=== PATIENT | female | born 1985 | race Caucasian/White ===

== ENCOUNTER 2017-05-24 10:31 | Emergency (ER) | payer MEDICAID ==
[~2017-05-24] VITALS: Ht 165.1 cm; Wt 95.0 kg
[~2017-05-24 10:31] MED LIST: PRED50 PO; ROBISYP6 PO; ZITHTAB PO
[2017-05-24 10:33] VITALS: BP 130/76; PULSE 97; RESP 15; TEMP 98.6; O2SAT 98
[2017-05-24 10:52] VITALS: BP 121/82; PULSE 90; RESP 18; O2SAT 99
[2017-05-24 10:56] VITALS: RESP 20; O2SAT 98
[2017-05-24] MEDS ORDERED: SE-NTAB3 PO (10:56)
[2017-05-24] MEDS ORDERED: NITR50CA27 PO (10:56)
[2017-05-24] MEDS ORDERED: SODIUM CHLORIDE 0.9% FLUSH 10 ML FLUSH IVF PRN (11:00)
[2017-05-24] MEDS ORDERED: SODIUM CHLOR 0.9% 1000 ML INJ 1,000 ML IV ONE (11:15)
[2017-05-24] MEDS ORDERED: ACETAMINOPHEN 325 MG TAB PO ONE (11:15)
[2017-05-24 11:30] LABS: BASOPHIL % 0.1 % (0.0-2.0); EOSINOPHIL # 0.3 TH/MM3 (0-0.4); EOSINOPHIL % 3.2 % (0.0-4.0); HEMATOCRIT 34.1 % (35.0-46.0); HEMO FLAGS DIFF FINAL; LYMPH % 24.5 % (9.0-44.0); LYMPHOCYTE # 2.2 TH/MM3 (1.0-4.8); MEAN CELL VOLUME 88.1 FL (80.0-100.0); MEAN CORPUSCULAR HEMOGLOBIN 29.3 PG (27.0-34.0); MEAN CORPUSCULAR HGB CONC 33.3 % (32.0-36.0); MONO % 6.9 % (0.0-8.0); NEUT % 65.3 % (16.0-70.0); PLATELET COUNT 202 TH/MM3 (150-450); RED BLOOD COUNT 3.87 MIL/MM3 (4.00-5.30); WHITE BLOOD COUNT 9.2 TH/MM3 (4.0-11.0)
--- NOTE | 2017-05-24 11:32 | PD ---
HPI Chief Complaint: Chest Pain Time Seen by Provider: 10:49 Travel History International Travel<30 days: No Contact w/Intl Traveler<30days: No Traveled to known affect area: No History of Present Illness HPI Patient is a 32 year old female with history of costochondritis and , presents to ER with complaints of chest pain. Patient reports that last night around 8pm, she began having a sharp and stabbing sensation to her left chest. Reports that her chest feels "achy" and "tight." Reports history of costochondritis in the past. Patient reports that she does feel shortness of breath with her symptoms. Patient denies any fevers or chills, denies any cough or congestion. Patient with no history of hypertension or hyperlipidemia or history of drug abuse. Patient with no recent travels or trips. Patient with no history of PE or DVT. Patient with no family history of early coronary artery disease. Patient reports that nothing makes her pain better or worse. In addition, patient is 16 weeks with twins, reports that this is her first . Reports that she has been having increased cramping to her right lower abdomen. Denies any vaginal bleeding, reports slight discharge which she has had. She does follow with Dr. Nayak, spa consultant who has seen her in the office already. PFSH Past Medical History Asthma: Yes Autoimmune Disease: Yes (FIBROMYALGIA) Bipolar Disorder: Yes Anxiety: Yes Depression: Yes Diminished Hearing: No Fibromyalgia: Yes Gastrointestinal Disorders: Yes (COLITIS) Musculoskeletal: Yes (COSTOCHONDRITIS) Respiratory: Yes (BRONCHITIS) Immunizations Current: Yes ?: LMP: 03/02/17 : 1 Para: 0 : 1 Past Surgical History Surgical History: No Previous Surgery Oral Surgery: Yes (WISDOM TEETH) Tonsillectomy: Yes Other Surgery: Yes (NASAL POLYP) Social History Alcohol Use: No Tobacco Use: No (NEVER) Substance Use: Yes (THC) Allergies-Medications (Allergen,Severity, Reaction): Coded Allergies: sertraline (Unverified Allergy, Severe, Swelling, 05/24/17) TONGUE SWELLING *ANGIOEDEMA* Reported Meds & Prescriptions Reported Meds & Active Scripts Active Reported Macrodantin (Nitrofurantoin Macrocrystal) 50 Mg Cap 50 Mg PO BID Se-Lorraine 19 29-1 mg ( Vit W/ Docusate-Fe Fu) 29 Mg Iron-1 Mg-25 Mg Tab 1 Tab PO DAILY Review of Systems General / Constitutional: No: Fever Eyes: No: Visual changes HENT: No: Headaches Cardiovascular: Positive: Chest Pain or Discomfort Respiratory: Positive: Shortness of Breath Gastrointestinal: Positive: Abdominal Pain Genitourinary: No: Dysuria Musculoskeletal: No: Pain Skin: No Rash Neurologic: No: Weakness Psychiatric: No: Depression Endocrine: No: Polydipsia Hematologic/Lymphatic: No: Easy Bruising Physical Exam Narrative GENERAL: nad, nontoxic appearing SKIN: Focused skin assessment warm/dry. HEAD: Atraumatic. Normocephalic. EYES: Pupils equal and round. No scleral icterus. No injection or drainage. ENT: No nasal bleeding or discharge. Mucous membranes pink and moist. NECK: Trachea midline. No JVD. CARDIOVASCULAR: Regular rate and rhythm. No murmur appreciated. RESPIRATORY: No accessory muscle use. Clear to auscultation. Breath sounds equal bilaterally. GASTROINTESTINAL: Abdomen soft, non-tender, nondistended. Hepatic and splenic margins not palpable. Gravid abdomen MUSCULOSKELETAL: No obvious deformities. No clubbing. No cyanosis. No edema. NEUROLOGICAL: Awake and alert. No obvious cranial nerve deficits. Motor grossly within normal limits. Normal speech. PSYCHIATRIC: Appropriate mood and affect; insight and judgment normal. Data Data Last Documented VS Vital Signs Date Time Temp Pulse Resp B/P (MAP) Pulse Ox O2 Delivery O2 Flow Rate FiO2 05/24/17 13:22 87 18 113/79 (90) 100 Room Air 05/24/17 10:33 98.6 Orders Orders Electrocardiogram (05/24/17 10:49) Complete Blood Count With Diff (05/24/17 10:49) Comprehensive Metabolic Panel (05/24/17 10:49) Magnesium (Mg) (05/24/17 10:49) Prothrombin Time / Inr (Pt) (05/24/17 10:49) Act Partial Throm Time (Ptt) (05/24/17 10:49) Lipase (05/24/17 10:49) Ecg Monitoring (05/24/17 10:49) Iv Access Insert/Monitor (05/24/17 10:49) Oximetry (05/24/17 10:49) Sodium Chloride 0.9% Flush (Ns Flush) (05/24/17 11:00) Heart Tones (05/24/17 10:49) Ckmb (Isoenzyme) Profile (05/24/17 11:01) Troponin I (05/24/17 11:01) Sodium Chlor 0.9% 1000 Ml Inj (Ns 1000 M (05/24/17 11:15) Acetaminophen (Tylenol) (05/24/17 11:15) Urinalysis - C+S If Indicated (05/24/17 11:28) Electrocardiogram (05/24/17 ) Labs Laboratory Tests Test 05/24/17 11:01 05/24/17 12:00 White Blood Count 9.2 TH/MM3 Red Blood Count 3.87 MIL/MM3 Hemoglobin 11.3 GM/DL Hematocrit 34.1 % Mean Corpuscular Volume 88.1 FL Mean Corpuscular Hemoglobin 29.3 PG Mean Corpuscular Hemoglobin Concent 33.3 % Red Cell Distribution Width 15.0 % Platelet Count 202 TH/MM3 Mean Platelet Volume 8.2 FL Neutrophils (%) (Auto) 65.3 % Lymphocytes (%) (Auto) 24.5 % Monocytes (%) (Auto) 6.9 % Eosinophils (%) (Auto) 3.2 % Basophils (%) (Auto) 0.1 % Neutrophils # (Auto) 6.0 TH/MM3 Lymphocytes # (Auto) 2.2 TH/MM3 Monocytes # (Auto) 0.6 TH/MM3 Eosinophils # (Auto) 0.3 TH/MM3 Basophils # (Auto) 0.0 TH/MM3 CBC Comment DIFF FINAL Differential Comment Prothrombin Time 10.0 SEC Prothromb Time International Ratio 0.9 RATIO Activated Partial Thromboplast Time 25.8 SEC Blood Urea Nitrogen 2 MG/DL Creatinine 0.42 MG/DL Random Glucose 86 MG/DL Total Protein 7.0 GM/DL Albumin 2.9 GM/DL Calcium Level 9.1 MG/DL Magnesium Level 1.8 MG/DL Alkaline Phosphatase 82 U/L Aspartate Amino Transf (AST/SGOT) 22 U/L Alanine Aminotransferase (ALT/SGPT) 25 U/L Total Bilirubin 0.2 MG/DL Sodium Level 136 MEQ/L Potassium Level 3.6 MEQ/L Chloride Level 104 MEQ/L Carbon Dioxide Level 23.6 MEQ/L Anion Gap 8 MEQ/L Estimat Glomerular Filtration Rate 176 ML/MIN Total Creatine Kinase 32 U/L Troponin I LESS THAN 0.02 NG/ML Lipase 111 U/L Urine Color YELLOW Urine Turbidity HAZY Urine pH 6.5 Urine Specific [place] 1.014 Urine Protein NEG mg/dL Urine Glucose (UA) NEG mg/dL Urine Ketones NEG mg/dL Urine Occult Blood NEG Urine Nitrite NEG Urine Bilirubin NEG Urine Urobilinogen LESS THAN 2.0 MG/DL Urine Leukocyte Esterase NEG Urine RBC 4 /hpf Urine WBC 3 /hpf Urine Squamous Epithelial Cells 3 /hpf Urine Bacteria OCC /hpf Urine Mucus FEW /lpf Microscopic Urinalysis Comment CULT NOT INDICATED MDM Medical Decision Making Medical Screen Exam Complete: Yes Emergency Medical Condition: Yes Medical Record Reviewed: Yes Interpretation(s) EKG at 1053 NSR at 84bpm, qt/qtc: 373/414/ no acute st or t wave changes Vital Signs Date Time Temp Pulse Resp B/P (MAP) Pulse Ox O2 Delivery O2 Flow Rate FiO2 05/24/17 10:56 20 98 Room Air 05/24/17 10:52 90 18 121/82 (95) 99 Room Air 05/24/17 10:33 98.6 97 15 130/76 (94) 98 Repeat ekg at 1300: NSR at 85bpm, qt/qtc: 379/421, qt/qtc: 379/421, no acute st or t wave changes Laboratory Tests Test 05/24/17 11:01 05/24/17 12:00 White Blood Count 9.2 TH/MM3 (4.0-11.0) Red Blood Count 3.87 MIL/MM3 (4.00-5.30) Hemoglobin 11.3 GM/DL (11.6-15.3) Hematocrit 34.1 % (35.0-46.0) Mean Corpuscular Volume 88.1 FL (80.0-100.0) Mean Corpuscular Hemoglobin 29.3 PG (27.0-34.0) Mean Corpuscular Hemoglobin Concent 33.3 % (32.0-36.0) Red Cell Distribution Width 15.0 % (11.6-17.2) Platelet Count 202 TH/MM3 (150-450) Mean Platelet Volume 8.2 FL (7.0-11.0) Neutrophils (%) (Auto) 65.3 % (16.0-70.0) Lymphocytes (%) (Auto) 24.5 % (9.0-44.0) Monocytes (%) (Auto) 6.9 % (0.0-8.0) Eosinophils (%) (Auto) 3.2 % (0.0-4.0) Basophils (%) (Auto) 0.1 % (0.0-2.0) Neutrophils # (Auto) 6.0 TH/MM3 (1.8-7.7) Lymphocytes # (Auto) 2.2 TH/MM3 (1.0-4.8) Monocytes # (Auto) 0.6 TH/MM3 (0-0.9) Eosinophils # (Auto) 0.3 TH/MM3 (0-0.4) Basophils # (Auto) 0.0 TH/MM3 (0-0.2) CBC Comment DIFF FINAL Differential Comment Prothrombin Time 10.0 SEC (9.8-11.6) Prothromb Time International Ratio 0.9 RATIO Activated Partial Thromboplast Time 25.8 SEC (24.3-30.1) Blood Urea Nitrogen 2 MG/DL (7-18) Creatinine 0.42 MG/DL (0.50-1.00) Random Glucose 86 MG/DL (74-106) Total Protein 7.0 GM/DL (6.4-8.2) Albumin 2.9 GM/DL (3.4-5.0) Calcium Level 9.1 MG/DL (8.5-10.1) Magnesium Level 1.8 MG/DL (1.5-2.5) Alkaline Phosphatase 82 U/L (45-117) Aspartate Amino Transf (AST/SGOT) 22 U/L (15-37) Alanine Aminotransferase (ALT/SGPT) 25 U/L (10-53) Total Bilirubin 0.2 MG/DL (0.2-1.0) Sodium Level 136 MEQ/L (136-145) Potassium Level 3.6 MEQ/L (3.5-5.1) Chloride Level 104 MEQ/L (98-107) Carbon Dioxide Level 23.6 MEQ/L (21.0-32.0) Anion Gap 8 MEQ/L (5-15) Estimat Glomerular Filtration Rate 176 ML/MIN (>89) Lipase 111 U/L (73-393) Urine Color YELLOW (YELLW/STRAW) Urine Turbidity HAZY (CLEAR) Urine pH 6.5 (5.0-8.5) Urine Specific [place] 1.014 (1.002-1.035) Urine Protein NEG mg/dL (NEG-TRACE) Urine Glucose (UA) NEG mg/dL (NEG) Urine Ketones NEG mg/dL (NEG) Urine Occult Blood NEG (NEG) Urine Nitrite NEG (NEG) Urine Bilirubin NEG (NEG) Urine Urobilinogen LESS THAN 2.0 MG/DL (LESS Urine Leukocyte Esterase NEG (NEG) Urine RBC 4 /hpf (0-3) Urine WBC 3 /hpf (0-5) Urine Squamous Epithelial Cells 3 /hpf (0-5) Urine Bacteria OCC /hpf (NONE) Urine Mucus FEW /lpf (OCC) Microscopic Urinalysis Comment CULT NOT INDICATED Differential Diagnosis Differential includes acs, arrhythmia, costochondritis, endocarditis/ pericarditis though unlikely, round ligament pain, UTI, PE Narrative Course 32-year-old female who presents to emergency room complaints of chest pain and abdominal pain. Patient with left sided chest pain, patient describes chest pain as sharp and stabbing in nature. Patient was placed on a cardiac surgeon upon arrival to the emergency room, EKG was obtained which showed no acute ST-T wave changes. Patient with atypical symptoms for chest pain, lab work including cardiac enzymes ordered to rule out infectious etiology of chest pain including but not limited to an endocarditis or pericarditis. Patient with low risk for this as she denies any IV drug abuse, denies any fevers or chills. Reports history of costochondritis with similar symptoms in the past. There is also consideration for possible pulmonary emboli, given her shortness of breath or chest pain, patient with no history of PE or DVT, patient with no recent travels, no family history of any irregular clotting disorders, patient is not tachycardic in the emergency room, patient with low probably for PE. As per patient's abdominal pain, patient reports cramping to right lower abdomen , she is 16 weeks . Reports intermittent pain to RLE, no vaginal discharge or bleeding. Plan to check UA. Will send patient to L&D for monitoring after she is cleared from the ER. Vital Signs Date Time Temp Pulse Resp B/P (MAP) Pulse Ox O2 Delivery O2 Flow Rate FiO2 05/24/17 10:56 20 98 Room Air 05/24/17 10:52 90 18 121/82 (95) 99 Room Air 05/24/17 10:33 98.6 97 15 130/76 (94) 98 CBC & BMP Diagram 10/19/17 11:01 Total Protein 7.0, Albumin 2.9 L, Calcium Level 9.1, Magnesium Level 1.8, Alkaline Phosphatase 82, Aspartate Amino Transf (AST/SGOT) 22, Alanine Aminotransferase (ALT/SGPT) 25, Total Bilirubin 0.2 Trop Patient re-evaluated, patient feeling much better at this time with complete resolution of her symptoms. Patient with most likely costochondritis, discussed with patient possibility of PE but patient is low risk for PE. Patient is not tachycardic or hypoxic this time, patient with complete resolution of chest pain at this time. Discussed with patient that to diagnose pulmonary emboli, CTA will be need to be obtained. With shared decision making , patient does not want CT at this time, if symptoms worsen or progress, she will return for further imaging studies. Patient will go upstairs to L&D for monitoring at this time. Diagnosis Primary Impression: Chest pain Qualified Codes: R07.9 - Chest pain, unspecified Additional Impression: Abdominal pain Qualified Codes: R10.9 - Unspecified abdominal pain Patient Instructions: General Instructions Additional Instructions: Please provide patient with a copy of her lab work and studies at discharge Please go directly to Labor and delivery once you are discharged from the ER Please follow up with your primary care doctor in 2-3 days Return to ER if symptoms worsen or progress Return to ER as needed Disposition: 01 DISCHARGE HOME Condition: Stable Vanita Chambers DO May 24, 2017 11:32
[2017-05-24 11:37] LABS: APTT (PATIENT) 25.8 SEC (24.3-30.1); INTERNATIONAL NORMALIZED RATIO 0.9 RATIO
[2017-05-24 11:46] LABS: ANION GAP 8 MEQ/L (5-15); AST (GOT) 22 U/L (15-37); BICARBONATE 23.6 MEQ/L (21.0-32.0); BLOOD UREA NITROGEN 2 MG/DL (7-18); CHLORIDE 104 MEQ/L (98-107); GLOMERULAR FILTRATION RATE 176 ML/MIN (>89); MAGNESIUM 1.8 MG/DL (1.5-2.5); POTASSIUM 3.6 MEQ/L (3.5-5.1); SODIUM (NA) 136 MEQ/L (136-145)
[2017-05-24 11:48] LABS: ALT (GPT) 25 U/L (10-53)
[2017-05-24 11:50] LABS: ALKALINE PHOSPHATASE 82 U/L (45-117); TOTAL BILIRUBIN ADULT 0.2 MG/DL (0.2-1.0)
[2017-05-24 12:36] LABS: BACTERIA, URINE OCC /hpf; BLOOD, URINE NEG (NEG); COMMENT (UR) CULT NOT INDICATED; CULTURE IF INDICATED CULT NOT INDICATED; GLUCOSE,URINE NEG (NEG); KETONE, URINE NEG (NEG); MUCUS URINE FEW /lpf (OCC); NITRITE,URINE NEG (NEG); PH, URINE 6.5 (5.0-8.5); SQUAMOUS EPITHELIAL CELL URINE 3 /hpf (0-5); URINE COLOR YELLOW (YELLW/STRAW)
[2017-05-24 13:22] VITALS: BP 113/79; PULSE 87; RESP 18; O2SAT 100
[2017-05-24 13:41] LABS: CREATINE KINASE 32 U/L (26-192)
--- NOTE | 2017-05-24 15:29 | PD ---
HPI Travel History International Travel<30 Days: No Contact w/Intl Traveler<30Days: No Known Affected Area: No (Christy Sheth MD R1) History of Present Illness HPI 32yr old [id number] at 16/1 weeks with twin gestation, presents with cramping pain. Initially presented to ER for chest pain and SOB that resolved. ACS r/o was negative. Patient reports that cramping pain began last night. She describes it as constant, right sided, dull- like pain. She is recently taking a 7-day course of antibiotics for a UTI. She reports that UTI is improving. She states that she has normal, thin white discharge. She denies fevers, leakage of fluid, and contractions. She currently denies depression and suicidal ideation. However , she requested information to speak to a therapist/counselor. (Christy Sheth MD R1) History Past Medical History Narrative Medical Fibromyalgia Costochondritis (Christy Sheth MD) Obstetric History Obstetric History A1 w/ twins LMP: January 31, 2017 (Christy Sheth MD) Past Surgical History Narrative Surgical Tonsillectomy (Christy Sheth MD) Family History Family History: Negative (Christy Sheth MD) Social History Alcohol Use: No Tobacco Use: No Substance Abuse: Yes (Marijuana use in early ) (Christy Sheth MD) Allergies-Medications (Allergen,Severity, Reaction): Coded Allergies: sertraline (Unverified Allergy, Severe, Swelling, 05/24/17) TONGUE SWELLING *ANGIOEDEMA* Home Meds Reported Medications Nitrofurantoin Macrocrystal (Macrodantin) 50 Mg Cap, 50 MG PO BID for Infection , CAP 0 Refills 05/24/17 Vit W/ Docusate-Fe Fu (Se-Lorraine 29-1 mg) 29 Mg Iron-1 Mg-25 Mg Tab, 1 TAB PO DAILY for Nutritional Supplement, TAB 0 Refills 05/24/17 Review of Systems Except as stated in HPI: all other systems reviewed are Neg (Christy Sheth MD R1) Physical Exam Vital Signs Date Time Temp Pulse Resp B/P (MAP) Pulse Ox O2 Delivery O2 Flow Rate FiO2 05/24/17 13:22 87 18 113/79 (90) 100 Room Air 05/24/17 10:56 20 98 Room Air 05/24/17 10:52 90 18 121/82 (95) 99 Room Air 05/24/17 10:33 98.6 97 15 130/76 (94) 98 Narrative GENERAL: Well-nourished, well-developed patient. SKIN: Warm and dry. HEAD: Normocephalic and atraumatic. EYES: No scleral icterus. No injection or drainage. ENT: No nasal drainage noted. Mucous membranes pink. Airway patent. NECK: Supple, trachea midline. No JVD. CARDIOVASCULAR: Regular rate and rhythm without murmurs, gallops, or rubs. RESPIRATORY: Breath sounds equal bilaterally. No accessory muscle use. ABDOMEN/GI: Abdomen soft, non-tender, bowel sounds present, no rebound, no guarding EXTREMITIES: No cyanosis or edema. BACK: Nontender without obvious deformity. NEUROLOGICAL: Awake and alert. Motor and sensory grossly within normal limits. (Christy Sheth MD R1) Data Data Vital Signs Reviewed: Yes Orders Orders Electrocardiogram (05/24/17 10:49) Complete Blood Count With Diff (05/24/17 10:49) Comprehensive Metabolic Panel (05/24/17 10:49) Magnesium (Mg) (05/24/17 10:49) Prothrombin Time / Inr (Pt) (05/24/17 10:49) Act Partial Throm Time (Ptt) (05/24/17 10:49) Lipase (05/24/17 10:49) Ecg Monitoring (05/24/17 10:49) Iv Access Insert/Monitor (05/24/17 10:49) Oximetry (05/24/17 10:49) Sodium Chloride 0.9% Flush (Ns Flush) (05/24/17 11:00) Heart Tones (05/24/17 10:49) Ckmb (Isoenzyme) Profile (05/24/17 11:01) Troponin I (05/24/17 11:01) Sodium Chlor 0.9% 1000 Ml Inj (Ns 1000 M (05/24/17 11:15) Acetaminophen (Tylenol) (05/24/17 11:15) Urinalysis - C+S If Indicated (05/24/17 11:28) Electrocardiogram (05/24/17 ) Labs Laboratory Tests Test 05/24/17 11:01 05/24/17 12:00 White Blood Count 9.2 Red Blood Count 3.87 Hemoglobin 11.3 Hematocrit 34.1 Mean Corpuscular Volume 88.1 Mean Corpuscular Hemoglobin 29.3 Mean Corpuscular Hemoglobin Concent 33.3 Red Cell Distribution Width 15.0 Platelet Count 202 Mean Platelet Volume 8.2 Neutrophils (%) (Auto) 65.3 Lymphocytes (%) (Auto) 24.5 Monocytes (%) (Auto) 6.9 Eosinophils (%) (Auto) 3.2 Basophils (%) (Auto) 0.1 Neutrophils # (Auto) 6.0 Lymphocytes # (Auto) 2.2 Monocytes # (Auto) 0.6 Eosinophils # (Auto) 0.3 Basophils # (Auto) 0.0 CBC Comment DIFF FINAL Differential Comment Prothrombin Time 10.0 Prothromb Time International Ratio 0.9 Activated Partial Thromboplast Time 25.8 Blood Urea Nitrogen 2 Creatinine 0.42 Random Glucose 86 Total Protein 7.0 Albumin 2.9 Calcium Level 9.1 Magnesium Level 1.8 Alkaline Phosphatase 82 Aspartate Amino Transf (AST/SGOT) 22 Alanine Aminotransferase (ALT/SGPT) 25 Total Bilirubin 0.2 Sodium Level 136 Potassium Level 3.6 Chloride Level 104 Carbon Dioxide Level 23.6 Anion Gap 8 Estimat Glomerular Filtration Rate 176 Total Creatine Kinase 32 Troponin I LESS THAN 0.02 Lipase 111 Urine Color YELLOW Urine Turbidity HAZY Urine pH 6.5 Urine Specific [place] 1.014 Urine Protein NEG Urine Glucose (UA) NEG Urine Ketones NEG Urine Occult Blood NEG Urine Nitrite NEG Urine Bilirubin NEG Urine Urobilinogen LESS THAN 2.0 Urine Leukocyte Esterase NEG Urine RBC 4 Urine WBC 3 Urine Squamous Epithelial Cells 3 Urine Bacteria OCC Urine Mucus FEW Microscopic Urinalysis Comment CULT NOT INDICATED (Christy Sheth MD R1) MDM Plan 32yr old A1 at 16/1 week with twin gestation presented with round ligament pain 1. Round ligament pain -Encouraged hydrating with plenty of fluids, 64oz daily -Repositioning, heating pad, and Tylenol for pain 2. UTI -Continue with 7-day antibiotic course for current UTI 3. Provided patient with resources to contact a therapist if needed 4. Return to ED if symptoms persist (Christy Sheth MD R1) Attending Attestation The exam, history, and the medical decision-making described in the above note were completed with the assistance of the resident provider. I reviewed and agree with the findings presented. I attest that I had a [id number] encounter with the patient on the same day, and personally performed and documented my assessment and findings in the medical record. (Jhonatan Warren MD) Diagnosis Diagnosis: Primary Impression: Chest pain Qualified Codes: R07.9 - Chest pain, unspecified Additional Impressions: Abdominal pain Qualified Codes: R10.9 - Unspecified abdominal pain Pain of round ligament during Disposition: 01 DISCHARGE HOME Condition: Good Patient Instructions: General Instructions Additional Instructions: -Hydrate, drink plenty of fluids, recommend 64oz daily -Try heating pad and Tylenol for pain -Contact [facility] program for resources/support Christy Sheth MD R1 May 24, 2017 15:29 Jhonatan Warren MD May 24, 2017 15:45
--- NOTE | 2017-05-25 22:03 | EKG ---
Date Performed: 05/24/2017 Time Performed: 10:53:45 PTAGE: 32 years EKG: Sinus rhythm MINIMAL VOLTAGE CRITERIA FOR LVH, CONSIDER NORMAL VARIANT BORDERLINE ECG NO PREVIOUS TRACING DOCTOR: Santiago Pretty Interpretating Date/Time 05/25/2017 21:44:07
--- NOTE | 2017-05-25 22:03 | EKG ---
Date Performed: 05/24/2017 Time Performed: 13:00:08 PTAGE: 32 years EKG: Sinus rhythm MINIMAL VOLTAGE CRITERIA FOR LVH, CONSIDER NORMAL VARIANT BORDERLINE ECG PREVIOUS TRACING : 12/24/2007 18.08 Compared to prior tracing no significant change DOCTOR: Santiago Pretty Interpretating Date/Time 05/25/2017 21:41:29
== END 2017-05-24 15:43 | disposition home or self-care (01) ==
LOC: NEPC 10:31 → HOBED 15:43
DX: O26.892 Other specified pregnancy related conditions, second trimester (principal); O23.42 Unspecified infection of urinary tract in pregnancy, second trimester; Z3A.16 16 weeks gestation of pregnancy
CPT/HCPCS: 80053; 81001; 82550; 83690; 83735; 84484; 85025; 85610; 85730; 93005; 96360; 99284; J7030

== ENCOUNTER 2017-07-28 09:59 | Emergency (ER) | payer MEDICAID ==
[~2017-07-28 09:59] MED LIST changes: +NITR50CA27 PO; -PRED50 PO; -ROBISYP6 PO; +SE-NTAB3 PO; -ZITHTAB PO
--- NOTE | 2017-07-28 11:30 | PD ---
HPI Chief Complaint twins with lower abdominal pain Date Seen: Jul 28, 2017 Time Seen: 11:22 Travel History International Travel<30 Days: No Contact w/Intl Traveler<30Days: No Known Affected Area: No History of Present Illness HPI Patient is 32-year-old white female at [address] Barriga for care presents complaining of lower abdominal pain for a day, denies bleeding or ruptured membranes. Babies are active. Heart rate tracings are reactive for both babies. There are no contractions on the monitor urinalysis here on urine dipstick on OB ED is negative Weeks Gestation: 25 Para: 0 : 2 Last Menstrual Period: Jul 28, 2017 Miscarriage: 1 History Obstetric History Obstetric History 1 early loss Twins with this Social History Alcohol Use: No Tobacco Use: No Substance Abuse: No Allergies-Medications (Allergen,Severity, Reaction): Coded Allergies: sertraline (Unverified Allergy, Severe, Swelling, 05/24/17) TONGUE SWELLING *ANGIOEDEMA* Home Meds Reported Medications Nitrofurantoin Macrocrystal (Macrodantin) 50 Mg Cap, 50 MG PO BID for Infection , CAP 0 Refills 05/24/17 Vit W/ Docusate-Fe Fu (Se-Lorraine 19 29-1 mg) 29 Mg Iron-1 Mg-25 Mg Tab, 1 TAB PO DAILY for Nutritional Supplement, TAB 0 Refills 05/24/17 Review of Systems General / Constitutional: No: Fever, Weight Gain, Chills, Other Eyes: No: Diploplia, Blurred Vision, Visual changes, Pain, Photophobia HENT: No: Headaches, Vertigo, Lightheadedness Cardiovascular: No: Irregular Rhythm, Chest Pain or Discomfort, Palpitations, Tachycardia, Syncope, Varicosities, Edema, Cyanosis Respiratory: No: Cough, Short of Breath, Other Gastrointestinal: Abdominal Pain, No: Nausea, Vomiting, Diarrhea Genitourinary: No: Decreased Urinary Output, Oliguria Musculoskeletal: No: Limited ROM, Weakness, Cramping, Edema, Pain Skin: No Rash, No Itching, No Dryness, No Lumps, No Change in Pigmentation, No Change in Nails, No Alopecia, No Lesions Neurologic: No: Weakness, Dizziness, Syncope, Focal Abnormalities, Coordination Problem, Headache, Slurred Speech, Seizures Psychiatric: No: Depression, Suicidal Ideations, Homicidal Ideation Endocrine: No: Heat Intolerance, Cold Intolerance, Polydipsia, Polyuria, Other Physical Exam Narrative GENERAL: Well-nourished, well-developed patient. SKIN: Warm and dry. HEAD: Normocephalic and atraumatic. EYES: No scleral icterus. No injection or drainage. ENT: No nasal drainage noted. Mucous membranes pink. Airway patent. NECK: Supple, trachea midline. No JVD. CARDIOVASCULAR: Regular rate and rhythm without murmurs, gallops, or rubs. RESPIRATORY: Breath sounds equal bilaterally. No accessory muscle use. BREASTS: Bilateral exam showed no masses , no retractions, no nipple discharge. ABDOMEN/GI: Abdomen soft, non-tender, bowel sounds present, no rebound, no guarding Gravid to [28-] weeks size Fundal Height: [28-]twins GENITOURINARY: External Genitalia: intact and normal in appearance BUS glands: [-] Cervix: [post-] Dilatation: [-closed] Effacement: [thick-] Station: [-3] Membranes: [intact ] Uterine Contractions: [-none] FHT's: Category: [1-] Baseline: [-133/144] Reactive: [yes-] Variability: [mod-] Decels: [-none] EXTREMITIES: No cyanosis or edema. BACK: Nontender without obvious deformity. No CVA tenderness. NEUROLOGICAL: Awake and alert. Motor and sensory grossly within normal limits. Five out of 5 muscle strength in all muscle groups. Normal speech. Data Data Orders Orders Fibronectin (07/28/17 11:20) Labs UA negative MDM Interpretation(s) Patient is 32-year-old white female at 25 weeks twin gestation followed to the [facility] and presents with complaining of lower abdominal pain for a day. Denies bleeding or rupture the membranes. heart trace tracings both babies reactive. there are no contractions, urinalysis dipstick is negative cervix is closed thick and fibronectin done and is negative Patient's pain is very likely related to soft tissue muscular skeletal discomfort strain Plan Plan the patient to take Tylenol liberally at home for discomfort, bedrest, increase oral fluids for hydration, heating pad or hot bath or shower for comfort measures. She is to follow-up with her OB provider. Diagnosis Diagnosis: Primary Impression: Twins Additional Impressions: 25 weeks gestation of Intermittent lower abdominal pain Disposition: 01 DISCHARGE HOME Condition: Stable Dennis Wolfe II, MD Jul 28, 2017 11:30
[2017-07-28 11:52] LABS: BACTERIA, URINE RARE /hpf; BILIRUBIN, URINE NEG (NEG); BLOOD, URINE TRACE (NEG); GLUCOSE,URINE NEG (NEG); KETONE, URINE NEG (NEG); MUCUS URINE FEW /lpf (OCC); NITRITE,URINE NEG (NEG); SQUAMOUS EPITHELIAL CELL URINE 5 /hpf (0-5); URINE COLOR LIGHT-YELLOW (YELLW/STRAW); URINE LEUKOCYTE ESTERASE NEG (NEG)
== END 2017-07-28 12:40 | disposition home or self-care (01) ==
LOC: HOBED 09:59
DX: O26.892 Other specified pregnancy related conditions, second trimester (principal); R10.30 Lower abdominal pain, unspecified; O30.002 Twin pregnancy, unspecified number of placenta and unspecified number of amniotic sacs, second trimester; Z3A.25 25 weeks gestation of pregnancy
CPT/HCPCS: 81001; 82731; 99283

== ENCOUNTER 2017-08-03 07:43 | Emergency (ER) | payer MEDICAID ==
[2017-08-03 08:27] VITALS: BP 130/83; PULSE 100
--- NOTE | 2017-08-03 08:42 | PD ---
HPI Chief Complaint Cold and flu symptoms, sinus congestion runny nose, nausea vomiting Date Seen: Aug 03, 2017 Time Seen: 08:30 Travel History International Travel<30 Days: No Contact w/Intl Traveler<30Days: No Known Affected Area: No History of Present Illness HPI 32-year-old white female at 26 weeks with twins goes to [facility] and presents with worsening sinus and cold symptoms over the last 24 hours. She complains was runny nose sinus congestion, nausea and vomiting, no measurable fever but she had some chills at home, babies are active no abdominal pain or contractions, heart rate tracings are reactive for 26 weeks Weeks Gestation: 26 Para: 0 : 2 Miscarriage: 1 History Obstetric History Obstetric History Twins with this Social History Alcohol Use: No Tobacco Use: No Substance Abuse: No Allergies-Medications (Allergen,Severity, Reaction): Coded Allergies: sertraline (Unverified Allergy, Severe, Swelling, 05/24/17) TONGUE SWELLING *ANGIOEDEMA* Home Meds Reported Medications Nitrofurantoin Macrocrystal (Macrodantin) 50 Mg Cap, 50 MG PO BID for Infection , CAP 0 Refills 05/24/17 Vit W/ Docusate-Fe Fu (Se- 29-1 mg) 29 Mg Iron-1 Mg-25 Mg Tab, 1 TAB PO DAILY for Nutritional Supplement, TAB 0 Refills 05/24/17 Review of Systems General / Constitutional: No: Fever, Weight Gain, Chills, Other Eyes: No: Diploplia, Blurred Vision, Visual changes, Pain, Photophobia HENT: No: Headaches, Vertigo, Lightheadedness Cardiovascular: No: Irregular Rhythm, Chest Pain or Discomfort, Palpitations, Tachycardia, Syncope, Varicosities, Edema, Cyanosis Respiratory: Cough, No: Short of Breath, Other Gastrointestinal: Nausea, Vomiting, No: Diarrhea Genitourinary: No: Decreased Urinary Output, Oliguria Musculoskeletal: No: Limited ROM, Weakness, Cramping, Edema, Pain Skin: No Rash, No Itching, No Dryness, No Lumps, No Change in Pigmentation, No Change in Nails, No Alopecia, No Lesions Neurologic: No: Weakness, Dizziness, Syncope, Focal Abnormalities, Coordination Problem, Headache, Slurred Speech, Seizures Psychiatric: No: Depression, Suicidal Ideations, Homicidal Ideation Endocrine: No: Heat Intolerance, Cold Intolerance, Polydipsia, Polyuria, Other Physical Exam Narrative GENERAL: Well-nourished, well-developed patient. SKIN: Warm and dry. HEAD: Normocephalic and atraumatic. EYES: No scleral icterus. No injection or drainage. Eyes are watering ENT: nasal drainage noted. Mucous membranes pink. Airway patent. Throat and oropharynx are clear discharge redness swelling NECK: Supple, trachea midline. No JVD. Slightly tender lymphadenopathy on the left side CARDIOVASCULAR: Regular rate and rhythm without murmurs, gallops, or rubs. RESPIRATORY: Breath sounds equal bilaterally. No accessory muscle use. BREASTS: Bilateral exam showed no masses , no retractions, no nipple discharge. ABDOMEN/GI: Abdomen soft, non-tender, bowel sounds present, no rebound, no guarding Gravid to [30-] weeks size Fundal Height: [-33] twins GENITOURINARY: External Genitalia: intact and normal in appearance BUS glands: [-] Cervix: [-post] Dilatation: [-closed] Effacement: [thick-] Station: [-3] Membranes: [intact ] Uterine Contractions: none[-] FHT's: Category: [1-] Baseline: [-133/135] Reactive: [yes-] Variability: [mod-] Decels: [none-] EXTREMITIES: No cyanosis or edema. BACK: Nontender without obvious deformity. No CVA tenderness. NEUROLOGICAL: Awake and alert. Motor and sensory grossly within normal limits. Five out of 5 muscle strength in all muscle groups. Normal speech. MDM Interpretation(s) 32-year-old white female with twins at 26 weeks goes to [facility] and presents with upper respiratory infection probably bilateral but with increasing sinus symptoms runny nose congestion mild nausea vomiting. Flu swab for A and B strains was negative babies are doing well on the monitor no contractions reactive strips, cervix is closed and high, she was given a liter of IV fluid for hydration Zofran IV also by mouth Claritin and Afrin spray for her nose Plan Plan to discharge the patient with a Z-Matthew for antibiotic coverage she can use Claritin and Afrin [id number] for symptom relief and is needs to follow- up with her OB provider and if not improved in the next 48 hours Diagnosis Diagnosis: Primary Impression: Sinusitis, acute frontal Additional Impressions: Twins 26 weeks gestation of Disposition: 01 DISCHARGE HOME Condition: Stable Scripts Azithromycin (Zithromax Z-Matthew) 250 Mg Dspk 250 MG PO DIRECTED for Infection, #1 DSPK 0 Refills 500 MG (2 tabs) day 1, then 1 tab days 2-5. Prov: Dennis Wolfe II, MD 08/03/17 Dennis Wolfe II, MD Aug 03, 2017 08:41
[2017-08-03 08:54] LABS: BACTERIA, URINE MOD /hpf; BILIRUBIN, URINE NEG (NEG); BLOOD, URINE SMALL (NEG); GLUCOSE,URINE NEG (NEG); KETONE, URINE NEG (NEG); MUCUS URINE FEW /lpf (OCC); NITRITE,URINE NEG (NEG); PH, URINE 7.5 (5.0-8.5); SQUAMOUS EPITHELIAL CELL URINE 3 /hpf (0-5); URINE COLOR YELLOW (YELLW/STRAW); URINE LEUKOCYTE ESTERASE TRACE (NEG)
[2017-08-03] MEDS ORDERED: LACTATED RINGER'S 1000 ML INJ 1,000 ML IV SCH (09:00)
[2017-08-03] MEDS ORDERED: OXYMETAZOLINE HCL 0.05% 15 ML NASAL SPRAY NASAL PRN (09:00)
[2017-08-03] MEDS ORDERED: LORATADINE 10 MG TAB PO SCH (09:00)
[2017-08-03] MEDS ORDERED: ONDANSETRON HCL 4 MG/2 ML VIAL IV PUSH ONE (09:00)
[2017-08-03] MEDS ORDERED: ZITHTAB PO (10:05)
== END 2017-08-03 10:40 | disposition home or self-care (01) ==
LOC: HOBED 07:43
DX: O99.512 Diseases of the respiratory system complicating pregnancy, second trimester (principal); J01.10 Acute frontal sinusitis, unspecified; J06.9 Acute upper respiratory infection, unspecified; O21.9 Vomiting of pregnancy, unspecified; O30.002 Twin pregnancy, unspecified number of placenta and unspecified number of amniotic sacs, second trimester; Z3A.26 26 weeks gestation of pregnancy; Z34.92 Encounter for supervision of normal pregnancy, unspecified, second trimester
CPT/HCPCS: 81001; 87086; 87804; 96374; 99284; J2405; J7120

== ENCOUNTER 2017-09-07 14:03 | Inpatient (IN) | payer MEDICAID, OTHER ==
[~2017-09-07] VITALS: Ht 165.1 cm; Wt 104.0 kg
[2017-09-07] VITALS (12 sets, daily range): BP systolic 117–150; BP diastolic 65–125; PULSE 98–119; RESP 18; TEMP 99.3
[~2017-09-07 14:03] MED LIST changes: +ZITHTAB PO
--- NOTE | 2017-09-07 15:41 | PD ---
HPI Chief Complaint JARQUIN, blurred vision Travel History International Travel<30 Days: No Contact w/Intl Traveler<30Days: No Known Affected Area: No History of Present Illness HPI 32-year-old 010, IUP at 31.1 care complicated by obesity, twin ,Migraine headache, asthma, bronchitis, bipolar disorder, depression, anxiety, costochondritis, fibromyalgia , history of chlamydia, constipation, diarrhea, frequent urinary tract infections, eczema The patient presents complaining of a headache and blurry vision. She reports that she has had "weird" visual changes that include spots, shadows, and blurry vision. This has been occurring today. She reports "severe swelling" in her ankles, hands, feet, and face. She reports intermittent headaches off and on. She initially denied any right upper quadrant or epigastric pain however later reported epigastric pain/tenderness. She reports that she does have a headache today, but has not attempted any treatments for this headache. There are no aggravating or alleviating factors to the headache. She reports movement for both fetuses. She reports that she checked her blood pressure at home because she was "not feeling right" and it was 141/107 with a pulse of 115. She reports that she has an automated blood pressure cuff that she use to check her blood pressure. She called the office and was instructed to come to the [facility]. She denies any leaking of fluid or vaginal bleeding. She reports occasional contractions at home but no regular contraction pattern. Weeks Gestation: 31 Para: 0 : 2 : 1 History Past Medical History Narrative Medical Migraine headache, asthma, bronchitis, bipolar disorder, depression, anxiety, costochondritis, fibromyalgia, history of chlamydia, constipation, diarrhea, frequent urinary tract infections, eczema Obstetric History Obstetric History 010 History of chlamydia EAB 1 Past Surgical History Narrative Surgical EAB, tonsillectomy, removal of vaginal cyst, removal of nasal polyp, wisdom teeth extraction, D&C Family History Narrative Family History Hypertension, anxiety Social History Alcohol Use: Yes Tobacco Use: No Substance Abuse: Yes (history of marijuana, pill use) Allergies-Medications (Allergen,Severity, Reaction): Coded Allergies: sertraline (Unverified Allergy, Severe, Swelling, 05/24/17) TONGUE SWELLING *ANGIOEDEMA* Home Meds Active Scripts Azithromycin (Zithromax Z-Matthew) 250 Mg Dspk, 250 MG PO DIRECTED for Infection , #1 DSPK 0 Refills 500 MG (2 tabs) day 1, then 1 tab days 2-5. Prov:Dennis Wolfe II, MD 08/03/17 Reported Medications Nitrofurantoin Macrocrystal (Macrodantin) 50 Mg Cap, 50 MG PO BID for Infection , CAP 0 Refills 05/24/17 Vit W/ Docusate-Fe Fu (Se--1 mg) 29 Mg Iron-1 Mg-25 Mg Tab, 1 TAB PO DAILY for Nutritional Supplement, TAB 0 Refills 05/24/17 Review of Systems Except as stated in HPI: all other systems reviewed are Neg General / Constitutional: No: Fever, Weight Gain, Weight Loss, Chills, Other Eyes: Diploplia, Blurred Vision, Visual changes, No: Pain, Photophobia, Other HENT: Headaches, No: Vertigo, Dental Difficulties, Lightheadedness, Other Cardiovascular: No: Irregular Rhythm, Chest Pain or Discomfort, Palpitations, Tachycardia, Syncope, Varicosities, Edema, Cyanosis, Other Respiratory: No: Cough, Short of Breath, Wheezing, Other Gastrointestinal: Abdominal Pain, No: Nausea, Vomiting, Diarrhea, Hematemesis, Hematochezia, Constipation, Changes in Bowel Habits, Indigestion, Loss of Appetite, Other Genitourinary: No: Urgency, Frequency, Dysuria, Nocturia, Hematuria, Decreased Urinary Output, Oliguria, Hesitancy, Dribbling, Incontinence, Pelvic Pain, Dyspareunia, Discharge, Menorrhagia, Vaginal Bleeding, Other Musculoskeletal: No: Limited ROM, Weakness, Cramping, Edema, Pain, Other Skin: No Rash, No Itching, No Dryness, No Lumps, No Change in Pigmentation, No Change in Nails, No Alopecia, No Lesions, No Breast Lumps, No Breast Tenderness , No Breast Swelling, No Other Neurologic: Headache, No: Weakness, Dizziness, Syncope, Focal Abnormalities, Coordination Problem, Slurred Speech, Seizures, Other Psychiatric: Anxiety, Depression, No: Suicidal Ideations, Disorder of Thought, Mood Disorder, Substance Abuse, Homicidal Ideation, Other Endocrine: No: Heat Intolerance, Cold Intolerance, Polydipsia, Polyuria, Other Hematologic/Lymphatic: No Easy Bruising, No Lymph Node Enlargement, No Other Physical Exam Vital Signs Date Time Temp Pulse Resp B/P (MAP) Pulse Ox O2 Delivery O2 Flow Rate FiO2 09/07/17 15:00 109 139/96 (110) Narrative GENERAL: Well-nourished, well-developed patient. SKIN: Warm and dry. HEAD: Normocephalic and atraumatic. EYES: No scleral icterus. No injection or drainage. ENT: No nasal drainage noted. Mucous membranes pink. Airway patent. NECK: Supple, trachea midline. No JVD. CARDIOVASCULAR: Regular rate and rhythm without murmurs, gallops, or rubs. RESPIRATORY: Breath sounds equal bilaterally. No accessory muscle use. BREASTS: Deferred ABDOMEN/GI: Abdomen soft, non-tender, bowel sounds present, no rebound, no guarding Gravid, obese GENITOURINARY: External Genitalia: intact and normal in appearance, grossly normal BUS, grossly normal rugae, physiologic discharge, fibronectin obtained, no cervical or vaginal masses. SVE closed/50/high/posterior FHT's: heart tones for a in the 130s with moderate long-term variability, good accelerations, no decelerations and be in the 140s with moderate long-term variability, good accelerations, no decelerations for reactive NST 2 and category 1 heart rate tracing EXTREMITIES: No cyanosis or edema. BACK: Nontender without obvious deformity. NEUROLOGICAL: Awake and alert. Motor and sensory grossly within normal limits. Normal speech. No clonus. DTRs 2+ Musculoskeletal: Grossly normal range of motion, gait, muscle strength Psychiatric: Grossly normal memory and affect Data Data Orders Orders Vital Signs (Adult) .ON ADMISSION (09/07/17 15:26) ^ Labor Status (09/07/17 15:26) Urinalysis - C+S If Indicated (09/07/17 15:26) ^ Non Stress Test (09/07/17 15:) Cbc No Diff, Includes Plts (09/07/17 15:26) Comprehensive Metabolic Panel (09/07/17 15:26) Uric Acid (09/07/17 15:26) Fibronectin (09/07/17 15:26) Protein Creat Ratio, Random Ur (09/07/17 15:27) Labs Laboratory Tests Test 09/07/17 14:35 09/07/17 15:00 MDM Plan Assessment/plan: 1. IUP at 31.1 2. Twin gestation 3. Elevated blood pressures: Patient with elevated blood pressures in the OB ED of 128/88-144/94. Preeclampsia evaluation was negative with exception of an elevated PC ratio 0.55. In addition the patient has complaints of visual changes and headache. Discussed with Dr. Barriga, will admit for 24-hour urine and further observation and evaluation of blood pressures. Discussed with patient who is in agreement of the plan. Discussed that although her blood pressures are elevated, she will be admitted for further evaluation due to the associated visual changes, JARQUIN, and now abdominal pain as well as additional risk factors of twin . Will place in bedrest while in hospital with SCDs. 4. UA: many bacteria and small leukocyte esterase and occult blood with 4 squamous cells. Will rx macrobid, culture pending 5. Obesity 6. Migraine headaches 7. Asthma 8. Bronchitis 9. Bipolar disorder 10. Depression 11. Anxiety: will rx vistaril for rest and anxiety in hospital. 12. Costochondritis 13. Fibromyalgia 14. History of chlamydia 15. History of constipation and diarrhea 16. Eczema 17. wellbeing: reassuring testing with reactive NST x2. Will monitor twice daily as per Dr. Barriga. Addendum 2129: discussed betamethasone with Dr. Barriga who was in agreement. discussed with patient including risks and potential benefit for accelerated lung maturity, patient in agreement and all of her questions were answered. Will Rx. Desire Perrin MD Sep 07, 2017 15:41
[2017-09-07 15:45] LABS: HEMATOCRIT 31.6 % (35.0-46.0); HEMOGLOBIN 10.4 GM/DL (11.6-15.3); MEAN CELL VOLUME 86.5 FL (80.0-100.0); MEAN CORPUSCULAR HEMOGLOBIN 28.5 PG (27.0-34.0); MEAN PLATELET VOLUME 8.5 FL (7.0-11.0); PLATELET COUNT 226 TH/MM3 (150-450); RED BLOOD COUNT 3.65 MIL/MM3 (4.00-5.30); RED CELL DISTRIBUTION WIDTH 15.7 % (11.6-17.2)
[2017-09-07 15:48] LABS: BACTERIA, URINE MANY /hpf; BILIRUBIN, URINE NEG (NEG); BLOOD, URINE SMALL (NEG); GLUCOSE,URINE NEG (NEG); HYALINE CAST, URINE 1 /lpf (RARE); KETONE, URINE NEG (NEG); MUCUS URINE FEW /lpf (OCC); NITRITE,URINE NEG (NEG); PH, URINE 6.5 (5.0-8.5); SQUAMOUS EPITHELIAL CELL URINE 4 /hpf (0-5); URINE COLOR YELLOW (YELLW/STRAW); URINE LEUKOCYTE ESTERASE SMALL (NEG)
[2017-09-07 16:04] LABS: ALBUMIN 2.3 GM/DL (3.4-5.0); ALT (GPT) 10 U/L (10-53); AST (GOT) 13 U/L (15-37); BICARBONATE 22.9 MEQ/L (21.0-32.0); BLOOD UREA NITROGEN 4 MG/DL (7-18); CALCIUM 8.9 MG/DL (8.5-10.1); CHLORIDE 108 MEQ/L (98-107); CREATININE 0.44 MG/DL (0.50-1.00); GLOMERULAR FILTRATION RATE 167 ML/MIN (>89); GLUCOSE,RANDOM 84 MG/DL (74-106); SODIUM (NA) 140 MEQ/L (136-145)
[2017-09-07 16:06] LABS: ALKALINE PHOSPHATASE 124 U/L (45-117); TOTAL BILIRUBIN ADULT 0.2 MG/DL (0.2-1.0); TOTAL PROTEIN 6.6 GM/DL (6.4-8.2)
[2017-09-07] MEDS ORDERED: ONDANSETRON ODT 4 MG TAB PO PRN (17:45)
[2017-09-07] MEDS ORDERED: ZOLPIDEM TARTRATE 5 MG TAB PO PRN (17:45)
[2017-09-07] MEDS ORDERED: SODIUM CHLORIDE 0.9% FLUSH 10 ML FLUSH IV FLUSH PRN (17:45)
[2017-09-07] MEDS ORDERED: ALUMINUM/MAGNESIUM/SIMETH 30 ML CUP PO PRN (17:45)
[2017-09-07] MEDS ORDERED: ONDANSETRON HCL 4 MG/2 ML VIAL IV PUSH PRN (17:45)
[2017-09-07] MEDS: SODIUM CHLORIDE 0.9% FLUSH 10 ML FLUSH IV FLUSH SCH (21:00)
[2017-09-07] MEDS: NITROFURANTOIN MONOHYD MACROCR 100 MG CAP PO SCH (22:21)
[2017-09-07] MEDS: FERROUS SULFATE 325 MG (65 MG ELEMENTAL IRON) TAB PO SCH (22:22)
--- NOTE | 2017-09-07 22:25 | PD ---
History of Present Illness History of Present Illness NST report Indications: IUP at 31.1, obesity, twin , Migraine headache, asthma, bronchitis, bipolar disorder, depression, anxiety, costochondritis, fibromyalgia , history of chlamydia, constipation, diarrhea, frequent urinary tract infections, eczema, elevated blood pressures and PC ratio heart tones for fetus A in the 130s with moderate long-term variability, good accelerations, no decelerations which is reassuring and appropriate for gestational age with a reactive NST and category 1 heart rate tracing heart tones for fetus B in the 140s with moderate long-term variability, good accelerations, no decelerations which is reassuring and appropriate for gestational age with a reactive NST and category 1 heart rate tracing Final Diagnosis: IUP at 31.1, obesity, twin , Migraine headache, asthma, bronchitis, bipolar disorder, depression, anxiety, costochondritis, fibromyalgia, history of chlamydia, constipation, diarrhea, frequent urinary tract infections, eczema, elevated blood pressures and PC ratio Desire Perrin MD Sep 07, 2017 22:25
[2017-09-07] MEDS: BETAMETHASONE SOD PHOS/ACETATE SUSP 30 MG/5 ML VIAL IM SCH (23:20)
[2017-09-08] VITALS (12 sets, daily range): BP systolic 118–145; BP diastolic 81–91; PULSE 101–119; RESP 18; TEMP 97.1–98.7
[2017-09-08] MEDS: DOCUSATE SODIUM 100 MG CAP PO SCH (07:38)
[2017-09-08] MEDS: SODIUM CHLORIDE 0.9% FLUSH 10 ML FLUSH IV FLUSH SCH ×2 (08:38→20:38)
[2017-09-08] MEDS: NITROFURANTOIN MONOHYD MACROCR 100 MG CAP PO SCH ×2 (08:38→17:23)
[2017-09-08] MEDS: FERROUS SULFATE 325 MG (65 MG ELEMENTAL IRON) TAB PO SCH ×2 (08:38→20:38)
[2017-09-08] MEDS: MULTIVIT/MIN/PREN/FOL AC/IRON PRENATAL TAB PO SCH (08:38)
[2017-09-08] MEDS: ACETAMINOPHEN 325 MG TAB PO PRN (10:04)
--- NOTE | 2017-09-08 10:10 | PD.OB.ANTE ---
Subjective Diagnosis: (1) Gestational hypertension Diagnosis: Principal (2) Twin in third trimester Diagnosis: Principal Interval History Continues to have dull R-sided headache and RUQ pain, on/off. No spots in vision, LE edema unchanged. No nausea, tolerated diet so far today. No longer c/o contractions. Feeling good FM. Antepartum ROS: Reports: New complaints, Denies: Loss of fluid, Vaginal bleeding, movement normal, Contractions , Other Objective Vital Signs Vital Signs Date Time Temp Pulse Resp B/P (MAP) Pulse Ox O2 Delivery O2 Flow Rate FiO2 09/08/17 07:35 112 09/08/17 07:34 111 133/81 (98) 09/08/17 07:33 98.0 09/08/17 07:33 18 09/08/17 04:00 18 09/08/17 01:23 101 145/91 (109) 09/07/17 23:01 101 117/65 (82) 09/07/17 23:00 18 09/07/17 22:00 104 134/87 (103) 09/07/17 21:00 115 122/85 (97) 09/07/17 20:30 114 128/84 (99) 09/07/17 20:30 18 09/07/17 20:00 114 128/77 (94) 09/07/17 19:44 99.3 18 09/07/17 19:44 111 130/86 (101) 09/07/17 19:30 109 144/125 (131) 09/07/17 19:00 119 150/99 (116) 09/07/17 15:45 98 130/94 (106) 09/07/17 15:30 101 144/94 (111) 09/07/17 15:00 109 139/96 (110) Lab & Micro Results Test 09/07/17 14:35 09/07/17 15:00 09/07/17 15:25 Urine Color YELLOW Urine Turbidity HAZY Urine pH 6.5 Urine Specific [place] 1.015 Urine Protein 30 mg/dL Urine Glucose (UA) NEG mg/dL Urine Ketones NEG mg/dL Urine Occult Blood SMALL Urine Nitrite NEG Urine Bilirubin NEG Urine Urobilinogen LESS THAN 2.0 MG/DL Urine Leukocyte Esterase SMALL Urine RBC 7 /hpf Urine WBC 3 /hpf Urine Squamous Epithelial Cells 4 /hpf Urine Bacteria MANY /hpf Urine Hyaline Casts 1 /lpf Urine Mucus FEW /lpf Microscopic Urinalysis Comment CULTURE INDICATED Urine Random Creatinine 97 MG/DL Urine Random Total Protein 53 MG/DL Urine Protein/Creatinine Ratio 0.55 White Blood Count 11.0 TH/MM3 Red Blood Count 3.65 MIL/MM3 Hemoglobin 10.4 GM/DL Hematocrit 31.6 % Mean Corpuscular Volume 86.5 FL Mean Corpuscular Hemoglobin 28.5 PG Mean Corpuscular Hemoglobin Concent 33.0 % Red Cell Distribution Width 15.7 % Platelet Count 226 TH/MM3 Mean Platelet Volume 8.5 FL Blood Urea Nitrogen 4 MG/DL Creatinine 0.44 MG/DL Random Glucose 84 MG/DL Total Protein 6.6 GM/DL Albumin 2.3 GM/DL Calcium Level 8.9 MG/DL Uric Acid 4.5 MG/DL Alkaline Phosphatase 124 U/L Aspartate Amino Transf (AST/SGOT) 13 U/L Alanine Aminotransferase (ALT/SGPT) 10 U/L Total Bilirubin 0.2 MG/DL Sodium Level 140 MEQ/L Potassium Level 3.9 MEQ/L Chloride Level 108 MEQ/L Carbon Dioxide Level 22.9 MEQ/L Anion Gap 9 MEQ/L Estimat Glomerular Filtration Rate 167 ML/MIN Fibronectin NEGATIVE Date/Time Source Procedure Growth Status 09/07/17 14:35 Urine Clean Catch Urine Culture Pending Received Physical Exam GENERAL: Well-nourished, well-developed patient. Obese. CARDIOVASCULAR: Regular rate and rhythm without murmurs, gallops, or rubs. RESPIRATORY: Breath sounds equal bilaterally. No accessory muscle use. ABDOMEN/GI: Abdomen soft, non-tender. Fundus: twins GENITOURINARY: External Genitalia: deferred FHT's: reassuring tracing x 2 EXTREMITIES: No cyanosis, non-tender, without signs of DVT. +1 edema b/l to ankles; no calf tenderness. Julianne Barriga MD Sep 08, 2017 10:10
[2017-09-08] MEDS ORDERED: CALCIUM GLUCONATE 10% 1 GM/10 ML VIAL IV PUSH PRN (10:15)
[2017-09-08] MEDS: FAMOTIDINE 20 MG TAB PO SCH ×2 (11:39→20:38)
--- NOTE | 2017-09-08 18:18 | RADRPT ---
EXAM DATE/TIME: 09/08/2017 16:08 [place] COMPARISON: No previous studies available for comparison. EXTERNAL COMPARISON : [facility], US ABDOMEN COMPLETE, May 10, 2017 INDICATIONS : Right upper quadrant pain. Nausea/vomiting. MEDICAL HISTORY : Bronchitis. Asthma. Colitis. Fibromyalgia. Costochondritis. Bipolar disorder. Anxiety. Depression. Sharp bstance use. SURGICAL HISTORY : Tonsillectomy. Nasal polyp. ENCOUNTER: Initial ACUITY: 1 day PAIN SCORE: 2/10 LOCATION: Bilateral upper quadrant MEASUREMENTS: LIVER: 17.1 cm length COMMON DUCT: 4 mm RIGHT KIDNEY: 11.6 x 4.5 x 5.0 cm SPLEEN: 10.5 cm length FINDINGS: The gallbladder is intact without any evidence for gallstones, gallbladder wall thickening, or perich olecystic fluid. The visualized liver, head of the pancreas, and right kidney appear grossly intact for technique. CONCLUSION: Unremarkable study. Mu Welsh MD on September 08, 2017 at 18:15 Board Certified Radiologist. This report was verified electronically.
[2017-09-08] MEDS ORDERED: ZANT150T2 PO (19:21)
[2017-09-08] MEDS: BETAMETHASONE SOD PHOS/ACETATE SUSP 30 MG/5 ML VIAL IM SCH (22:46)
[2017-09-09] VITALS (17 sets, daily range): BP systolic 120–147; BP diastolic 65–91; PULSE 98–114; RESP 16–20; TEMP 97.8–99.2
[2017-09-09] MEDS: hydrOXYzine PAMOATE 25 MG CAP PO PRN ×2 (00:51→15:17)
[2017-09-09] MEDS: ACETAMINOPHEN 325 MG TAB PO PRN ×2 (01:52→14:02)
[2017-09-09 05:52] LABS: HEMATOCRIT 30.2 % (35.0-46.0); HEMOGLOBIN 10.2 GM/DL (11.6-15.3); MEAN CELL VOLUME 85.5 FL (80.0-100.0); MEAN CORPUSCULAR HEMOGLOBIN 28.8 PG (27.0-34.0); MEAN CORPUSCULAR HGB CONC 33.7 % (32.0-36.0); MEAN PLATELET VOLUME 8.3 FL (7.0-11.0); PLATELET COUNT 222 TH/MM3 (150-450); RED BLOOD COUNT 3.54 MIL/MM3 (4.00-5.30); RED CELL DISTRIBUTION WIDTH 15.9 % (11.6-17.2)
[2017-09-09 06:32] LABS: ALBUMIN 2.3 GM/DL (3.4-5.0); AST (GOT) 12 U/L (15-37); BICARBONATE 21.4 MEQ/L (21.0-32.0); BLOOD UREA NITROGEN 6 MG/DL (7-18); CALCIUM 8.7 MG/DL (8.5-10.1); CHLORIDE 106 MEQ/L (98-107); CREATININE 0.51 MG/DL (0.50-1.00); GLOMERULAR FILTRATION RATE 141 ML/MIN (>89); GLUCOSE,RANDOM 129 MG/DL (74-106); SODIUM (NA) 139 MEQ/L (136-145)
[2017-09-09 06:38] LABS: ALKALINE PHOSPHATASE 122 U/L (45-117); ALT (GPT) 11 U/L (10-53); TOTAL BILIRUBIN ADULT 0.1 MG/DL (0.2-1.0); TOTAL PROTEIN 6.5 GM/DL (6.4-8.2)
[2017-09-09] MEDS: DOCUSATE SODIUM 100 MG CAP PO SCH (08:50)
[2017-09-09] MEDS: SODIUM CHLORIDE 0.9% FLUSH 10 ML FLUSH IV FLUSH SCH ×2 (08:50→21:00)
[2017-09-09] MEDS: FERROUS SULFATE 325 MG (65 MG ELEMENTAL IRON) TAB PO SCH ×2 (08:51→20:42)
[2017-09-09] MEDS: NITROFURANTOIN MONOHYD MACROCR 100 MG CAP PO SCH ×2 (08:51→17:52)
[2017-09-09] MEDS: FAMOTIDINE 20 MG TAB PO SCH ×2 (08:51→20:42)
[2017-09-09] MEDS: MULTIVIT/MIN/PREN/FOL AC/IRON PRENATAL TAB PO SCH (08:51)
--- NOTE | 2017-09-09 08:53 | PD.OB.ANTE ---
Subjective Diagnosis: (1) Pre-eclampsia during in third trimester, antepartum Diagnosis: Principal (2) Gestational hypertension Diagnosis: Principal (3) Dichorionic diamniotic twin in third trimester Diagnosis: Principal Interval History Pt still c/o on/off RUQ pain, no change in severity. Slept overnight, headache improves with eating, R sided dull. No vision changes yesterday. Denies contractions, LOF or VB. Endorses +FM x 2. Endorses continued LE edema, thinks the same as yesterday. Antepartum ROS: Reports: movement normal, Denies: New complaints, Loss of fluid, Vaginal bleeding, Contractions, Other Objective Vital Signs Vital Signs Date Time Temp Pulse Resp B/P (MAP) Pulse Ox O2 Delivery O2 Flow Rate FiO2 09/09/17 04:27 16 09/09/17 04:27 98.1 09/09/17 04:25 99 124/86 (99) 09/09/17 01:43 101 139/88 (105) 09/09/17 00:55 97.8 20 09/09/17 00:54 105 133/85 (101) 09/09/17 00:02 109 120/84 (96) 09/09/17 00:00 18 09/09/17 00:00 109 120/84 (96) 09/08/17 21:00 97.1 18 09/08/17 20:53 107 144/91 (108) 09/08/17 17:26 108 135/87 (103) 09/08/17 13:48 113 118/85 (96) 09/08/17 13:47 18 09/08/17 13:44 98.7 09/08/17 10:43 119 123/85 (98) Lab & Micro Results Test 09/08/17 14:35 09/08/17 17:30 09/09/17 05:43 Urine Opiates Screen NEG Urine Barbiturates Screen NEG Urine Amphetamines Screen NEG Urine Benzodiazepines Screen NEG Urine Cocaine Screen NEG Urine Cannabinoids Screen NEG Urine Total Volume 24 Hours 1050 ML Creatinine Clearance 24 Hour 193 ML/MIN Urine Total Protein 24 Hour 908 MG/24HR Creatinine 0.44 MG/DL 0.51 MG/DL White Blood Count 13.0 TH/MM3 Red Blood Count 3.54 MIL/MM3 Hemoglobin 10.2 GM/DL Hematocrit 30.2 % Mean Corpuscular Volume 85.5 FL Mean Corpuscular Hemoglobin 28.8 PG Mean Corpuscular Hemoglobin Concent 33.7 % Red Cell Distribution Width 15.9 % Platelet Count 222 TH/MM3 Mean Platelet Volume 8.3 FL Blood Urea Nitrogen 6 MG/DL Random Glucose 129 MG/DL Total Protein 6.5 GM/DL Albumin 2.3 GM/DL Calcium Level 8.7 MG/DL Uric Acid 4.5 MG/DL Alkaline Phosphatase 122 U/L Aspartate Amino Transf (AST/SGOT) 12 U/L Alanine Aminotransferase (ALT/SGPT) 11 U/L Total Bilirubin 0.1 MG/DL Sodium Level 139 MEQ/L Potassium Level 4.2 MEQ/L Chloride Level 106 MEQ/L Carbon Dioxide Level 21.4 MEQ/L Anion Gap 12 MEQ/L Estimat Glomerular Filtration Rate 141 ML/MIN Date/Time Source Procedure Growth Status 09/07/17 14:35 Urine Clean Catch Urine Culture - Preliminary IMMATURE GROWTH - REINCUBATE Resulted Physical Exam GENERAL: Well-nourished, well-developed patient. Obese. CARDIOVASCULAR: Regular rate and rhythm without murmurs, gallops, or rubs. RESPIRATORY: Breath sounds equal bilaterally. No accessory muscle use. ABDOMEN/GI: Abdomen soft, non-tender. Fundus: [twins, larger than dates] GENITOURINARY: External Genitalia: deferred FHT's: R NST x 2 last night, pending this AM EXTREMITIES: No cyanosis, non-tender, without signs of DVT. +1 edema to ankles b/l Assessment and Plan Problem List: (1) Pre-eclampsia during in third trimester, antepartum ICD Codes: O14.93 - Unspecified pre-eclampsia, third trimester Status: Acute (2) Dichorionic diamniotic twin in third trimester ICD Codes: O30.043 - Twin , dichorionic/diamniotic, third trimester Assessment and Plan 32 yo with di/di twin at 31w3d admit 09/07/17 for multiple complaints, new elevated BP and proteinuria, ruled in for Preeclampsia on 24h urine collection 1) PreEclampsia: mild at this time, continue to monitor closely due to inconsistent symptoms/complaints; plan for BPP and growth u/s today; last growth scan in office 08/07/17 with Twin A 64%tile and Twin B 68%tile - 24h urine resulted 09/08/17 with 908mg protein - PIH labs wnl at this time with normal AST/ALT/plts/UA; continue to monitor every other day - continue NST qshift and twice weekly BPP, ordered today - inconsistent RUQ pain, liver/gallbladder u/s on 09/08/17 normal/negative - pt aware if delivery indicated will be if malpresentation persistent and if symptoms severe with unfavorable Reyes's score 2) admission UA suggestive of infection; culture pending, on Macrobid bid since admit 3) status: di/di twins, R NST x 2 currently, plan BPP and growth scan today, last 08/07/17 with A 64%tile and B 68% tile; malpresentation at that time Breech/Transverse Julianne Barriga MD Sep 09, 2017 08:52
--- NOTE | 2017-09-09 20:53 | HHI.PR ---
Addendum to Inpatient Note Addendum Reason: Additional Documentation Additional Information Consult Maternal Hx: 32 y/o female at 31.3 weeks gestation with diagnosis of Pre-eclampsia and Twin Mother admitted to L & D on 09/07/17 secondary to elevated blood pressures, visual changes, proteinuria Maternal Medications: PNV, Iron, Vistaril, Ambien Betamethasone 09/07/2017 and 09/08/2017 Medical History: Obesity, Migraines, Asthma, Bi-polar Disorder, Depression, Fibromyalgia Social: Marital status: single - father of baby not involved Resides locally with history of being homeless, states she is "in a good place now" Family Hx: Mother reports no genetic or inherited conditions. Substance Abuse: Denies. Initial urine tox is negative, expanded pending. Discussion: Nurse Practitioner met with mother regarding threatened twin delivery at 31.3 weeks gestation secondary to Pre-eclampsia This consultation included generalized care of the baby in the NICU, common problems, complications and survival and/or disability potential if delivered at this time. Mother was provided with informational sheets regarding the development of the babies currently, an introduction to the NICU, and what to expect at the delivery. Mother agreed that she would review the information as soon as possible. During our conversation I reviewed the expectations with delivery of an infant under these circumstances including delivery room atmosphere, resuscitation and stabilization. Also included in this review is the admission process to the NICU, including possible procedures such as intubation. Additionally, there was a discussion of the disease processes that may affect an of this gestation, including but not limited to respiratory distress and nutritional concerns. Brief discussion on CPAP and/or ventilator support as needed for an of this gestation. There was a review of nutritional support challenges. Mother was encouraged to pump and breast feed. It was explained that there is an increased potential for neurodevelopmental delay secondary to prematurity itself, even if the does not have IVH or ROP. Support systems in place at [facility] were reviewed and included , Case Management and Ministry which the family may utilize. Mother requested a Case Management Consult, and that was related to her nurse. Expected discharge would likely occur closer ti the due date if the infant has an uncomplicated hospitalization. Greater than 50% of the time was spent with the patient. Jennifer Wallace Sep 09, 2017 20:53
[2017-09-10] VITALS (19 sets, daily range): BP systolic 111–135; BP diastolic 73–86; PULSE 86–101; RESP 17–18; TEMP 97.6–98.7
[2017-09-10] MEDS: ACETAMINOPHEN 325 MG TAB PO PRN ×2 (07:20→14:25)
--- NOTE | 2017-09-10 08:38 | PD.OB.ANTE ---
Subjective Diagnosis: (1) Pre-eclampsia during in third trimester, antepartum (2) Dichorionic diamniotic twin in third trimester Interval History 32 yo swf with Twin IUP at 31 4/7 weeks here for day 4 of evaluation. Came in Sunday with home BP 140s/110's and no 120s over 70s. Labs ok except 900 mg protein in 24 hour urine and protein creatinine ration > 0.3 Did have symptoms of JARQUIN, scotoma swelling but no RUQT. No symptoms of labor. surveillance x 2 reassuring. No growth discordancy No PTL. History of significant illicit substance use that started with prescribed muscle relaxants and pain killers at 16 yoa. Was on methamphetamine at time of conception and stopped all illicit use when learned of . Entered practice at 12 weeks EGA. No PTL, GDM or HTN until last Sunday. ACOG now on chart. Non immune to varicella and rubella Has had flu shot. Has had steroids this hospitalization. History of BPD and multiple medications--lost to treatment when lost insurance. On no psych meds at this time and feels she is doing reasonably well. Prefers to avoid them at this time. Objective Vital Signs Vital Signs Date Time Temp Pulse Resp B/P (MAP) Pulse Ox O2 Delivery O2 Flow Rate FiO2 09/10/17 07:33 17 09/10/17 07:17 98.1 09/10/17 07:17 90 121/77 (92) 09/10/17 07:00 18 09/10/17 04:38 97.6 18 09/10/17 04:36 86 111/76 (88) 09/09/17 22:24 104 120/65 (83) 09/09/17 19:13 18 09/09/17 19:12 98.2 09/09/17 19:11 114 133/82 (99) 09/09/17 17:50 101 140/85 (103) 09/09/17 17:50 99.2 17 09/09/17 13:09 18 09/09/17 13:03 97.8 09/09/17 13:02 110 147/91 (109) 09/09/17 08:59 17 09/09/17 08:48 99.0 98 142/89 (106) Lab & Micro Results Date/Time Source Procedure Growth Status 09/07/17 14:35 Urine Clean Catch Urine Culture - Final 50-100,000 CFU/ML MIXED GRAM POSITIVE... Complete Physical Exam GENERAL: Well-nourished, well-developed patient. CARDIOVASCULAR: Regular rate and rhythm without murmurs, gallops, or rubs. RESPIRATORY: Breath sounds equal bilaterally. No accessory muscle use. ABDOMEN/GI: Abdomen soft, non-tender. FH 37 cervix is soft midline 50% fingertip , -3 with no presenting part EXTREMITIES: No cyanosis edema +1, non-tender, without signs of DVT. Assessment and Plan Problem List: (1) Pre-eclampsia during in third trimester, antepartum ICD Codes: O14.93 - Unspecified pre-eclampsia, third trimester Status: Acute (2) Dichorionic diamniotic twin in third trimester ICD Codes: O30.043 - Twin , dichorionic/diamniotic, third trimester Assessment and Plan 32 yo with di/di twin at 31w3d admit 09/07/17 for multiple complaints, new elevated BP and proteinuria, ruled in for Preeclampsia on 24h urine collection 1) PreEclampsia: mild at this time, continue to monitor closely due to inconsistent symptoms/complaints; plan for BPP and growth u/s today; last growth scan in office 08/07/17 with Twin A 64%tile and Twin B 68%tile - 24h urine resulted 09/08/17 with 908mg protein - PIH labs wnl at this time with normal AST/ALT/plts/UA; continue to monitor every other day - continue NST qshift and twice weekly BPP, ordered today - inconsistent RUQ pain, liver/gallbladder u/s on 09/08/17 normal/negative - pt aware if delivery indicated will be if malpresentation persistent and if symptoms severe with unfavorable Reyes's score 2) admission UA suggestive of infection; culture pending, on Macrobid bid since admit 3) status: di/di twins, R NST x 2 currently, plan BPP and growth scan today, last 08/07/17 with A 64%tile and B 68% tile; malpresentation at that time Breech/Transverse 09/10/17 8:30 Twin IUP at 31 + weeks pre eclampsia without severe feature hx of mental health issues (MDD vs BPD 1) hx of substance use in remission watch for progression of pre eclampsia watch for IUGR, discordancy, PTL continue assessment with repeat BPP, repeat labs and psych evalution. I would prefer she not take psych meds at this time. Lu Brice MD Sep 10, 2017 08:38
[2017-09-10] MEDS ORDERED: ASPIRIN 81 MG CHEW TAB PO ONE (09:00)
[2017-09-10] MEDS: SODIUM CHLORIDE 0.9% FLUSH 10 ML FLUSH IV FLUSH SCH ×2 (09:00→19:59)
[2017-09-10] MEDS: DOCUSATE SODIUM 100 MG CAP PO SCH (09:00)
[2017-09-10] MEDS: MULTIVIT/MIN/PREN/FOL AC/IRON PRENATAL TAB PO SCH (09:12)
[2017-09-10] MEDS: FERROUS SULFATE 325 MG (65 MG ELEMENTAL IRON) TAB PO SCH ×2 (09:12→21:06)
[2017-09-10] MEDS: FAMOTIDINE 20 MG TAB PO SCH ×2 (09:13→21:06)
[2017-09-10 10:11] LABS: BACTERIA, URINE OCC /hpf; BILIRUBIN, URINE NEG (NEG); BLOOD, URINE TRACE (NEG); GLUCOSE,URINE NEG (NEG); HYALINE CAST, URINE 1 /lpf (RARE); KETONE, URINE NEG (NEG); MUCUS URINE FEW /lpf (OCC); NITRITE,URINE NEG (NEG); PH, URINE 6.5 (5.0-8.5); SQUAMOUS EPITHELIAL CELL URINE 1 /hpf (0-5); URINE COLOR YELLOW (YELLW/STRAW); URINE LEUKOCYTE ESTERASE TRACE (NEG)
[2017-09-10 11:01] LABS: AUTOMATED NEUTROPHIL # 8.9 TH/MM3 (1.8-7.7); BASOPHIL % 0.2 % (0.0-2.0); EOSINOPHIL # 0.1 TH/MM3 (0-0.4); EOSINOPHIL % 1.2 % (0.0-4.0); HEMATOCRIT 31.8 % (35.0-46.0); HEMOGLOBIN 10.5 GM/DL (11.6-15.3); LYMPH % 20.5 % (9.0-44.0); LYMPHOCYTE # 2.6 TH/MM3 (1.0-4.8); MEAN CELL VOLUME 87.5 FL (80.0-100.0); MEAN CORPUSCULAR HGB CONC 33.2 % (32.0-36.0); MEAN PLATELET VOLUME 8.4 FL (7.0-11.0); MONO % 7.3 % (0.0-8.0); MONOCYTE # 0.9 TH/MM3 (0-0.9); NEUT % 70.8 % (16.0-70.0); PLATELET COUNT 229 TH/MM3 (150-450); RED BLOOD COUNT 3.63 MIL/MM3 (4.00-5.30); RED CELL DISTRIBUTION WIDTH 16.2 % (11.6-17.2); WHITE BLOOD COUNT 12.6 TH/MM3 (4.0-11.0)
[2017-09-10 11:19] LABS: ALBUMIN 2.4 GM/DL (3.4-5.0); ALT (GPT) 11 U/L (10-53); AST (GOT) 13 U/L (15-37); DIRECT BILIRUBIN ADULT LESS THAN 0.1 MG/DL (0.0-0.2)
[2017-09-10 11:21] LABS: ALKALINE PHOSPHATASE 116 U/L (45-117); INDIRECT BILIRUBIN 0.1 MG/DL (0.0-0.8); TOTAL BILIRUBIN ADULT 0.2 MG/DL (0.2-1.0); TOTAL PROTEIN 6.7 GM/DL (6.4-8.2)
--- NOTE | 2017-09-10 13:23 | PD.PSY.CON ---
Provisional Diagnosis Admission Date Sep 07, 2017 at 17:39 [place] I. Adjustment disorder with depressed mood and depression, history of polysubstance dependence, including alcohol, crystal meth, cocaine, cannabis, opiates, in sustained full remission. [place] II. Unspecified personality disorder, rule out borderline personality [place] III. 31 weeks , preeclamptic. [place] IV. Extensive history of polysubstance dependence, she is now in sustained full remission. [place] V. 55 History of Present Illness Service Psychiatry Consult Requested By Medical team Reason for Consult Anxiety/depressive symptoms Primary Care Physician No Primary Care Physician HPI The patient is 32 -year-old woman, domiciled with her mother in [facility], unemployed, single, with psychiatric history of bipolar disorder, polysubstance dependence, including cocaine, amphetamines, cannabis, alcohol, opiates, she is in sustained full remission, no previous psychiatric hospitalizations, she is in a weekly therapy session, No previous suicidal attempts, she has history of self cutting behavior without SI, poor impulse control, history of aggressive behavior, short temper, tumultuous interpersonal relationships, medical history of 31.3 weeks gestation with diagnosis of Pre- eclampsia and Twin Mother admitted to L & D on 09/07/17 secondary to elevated blood pressures, visual changes, proteinuria. Patient was consulted to psychiatry for advice due to history of depression and BPD. Chart was reviewed. The patient was evaluated at bedside in the OBGym floor. On psychiatric evaluation patient is calm, cooperative, pleasant. She reports that in the last days she has been overwhelmed and anxious most probably related with her current acute medical conditions. The patient reports that she has not been in psychotropics since she became "because I prefer not to take any medication for my babies". At this moment the patient denies hopelessness, denies anhedonia, she denies helplessness, denies worthlessness, patient is future oriented, has multiple plans, very good support structure. She denies suicidal and homicidal ideation, she denies visual and auditory hallucinations. The patient was able to take a very good insightful history of her drug use, was able to comment about her motivation to continue her sobriety and to participate in psychotherapy and psychotropic regimen if possible and needed. She is also willing to continue her psychotherapy sessions. She would love to take any medication to help her with her anxiety in the hospital. The patient denies the use of illegal drugs since she is . She is fully oriented 3, no attention deficit, no fluctuation of consciousness. During my evaluation there is not evidence of alli, psychosis, loosening of associations , annoy a, agitation or aggressive behavior. Review of Systems Constitutional: DENIES: Diaphoretic episodes, Fatigue, Fever, Weight gain, Weight loss, Chills, Dizziness, Change in appetite, Night Sweats Endocrine: DENIES: Abnorml menstrual pattern, Heat/cold intolerance, Polydipsia , Polyuria, Polyphagia Eyes: DENIES: Blurred vision, Diplopia, Eye inflammation, Eye pain, Vision loss , Photosensitivity, Double Vision Ears, nose, mouth, throat: DENIES: Tinnitus, Hearing loss, Vertigo, Nasal discharge, Oral lesions, Throat pain, Hoarseness, Ear Pain, Running Nose, Epistaxis, Sinus Pain, Toothache, Odynophagia Respiratory: DENIES: Apneas, Cough, Snoring, Wheezing, Hemoptysis, Sputum production, Shortness of breath Cardiovascular: DENIES: Chest pain, Palpitations, Syncope, Dyspnea on Exertion , PND, Lower Extremity Edema, Orthopnea, Claudication Musculoskeletal: DENIES: Joint pain, Muscle aches, Stiffness, Joint Swelling, Back pain, Neck pain Hematologic/lymphatic: DENIES: Bruising, Lymphadenopathy Immunologic/allergic: DENIES: Eczema, Urticaria Neurologic: DENIES: Abnormal gait, Headache, Localized weakness, Paresthesias, Seizures, Speech Problems, Tremor, Poor Balance Psychiatric: COMPLAINS OF: Anxiety Past Family Social History Coded Allergies: sertraline (Verified Allergy, Severe, Swelling, 09/08/17) TONGUE SWELLING *ANGIOEDEMA* Reported Medications Ranitidine (Zantac) 150 Mg Tab, 150 MG PO BID for Reduce Stomach Acid, #60 TAB 0 Refills 09/08/17 Nitrofurantoin Macrocrystal (Macrodantin) 50 Mg Cap, 50 MG PO BID for Infection , CAP 0 Refills 05/24/17 Vit W/ Docusate-Fe Fu (Se- 19 29-1 mg) 29 Mg Iron-1 Mg-25 Mg Tab, 1 TAB PO DAILY for Nutritional Supplement, TAB 0 Refills 05/24/17 Discontinued Scripts Azithromycin (Zithromax Z-Matthew) 250 Mg Dspk, 250 MG PO DIRECTED for Infection , #1 DSPK 0 Refills 500 MG (2 tabs) day 1, then 1 tab days 2-5. Prov:Dennis Wolfe II, MD 08/03/17 Current Medications Medications (Trade) Dose Ordered Sig/Ian Route Start Time Stop Time Status Last Admin (Tylenol) 650 mg Q4H PRN PO 09/07/17 17:45 09/10/17 07:20 (Stuartnatal Plus 3 ) 1 tab DAILY PO 09/08/17 09:00 09/10/17 09:12 (Colace) 100 mg DAILY PO 09/08/17 09:00 (Mag-Al Plus Susp Liq) 30 ml QID PRN PO 09/07/17 17:45 09/09/17 01:52 (NS Flush) 2 ml BID IV FLUSH 09/07/17 21:00 09/09/17 21:00 (NS Flush) 2 ml UNSCH PRN IV FLUSH 09/07/17 17:45 (Ambien) 5 mg HS PRN PO 09/07/17 17:45 09/07/17 23:20 (Zofran Odt) 4 mg Q6H PRN PO 09/07/17 17:45 (Zofran Inj) 4 mg Q6H PRN IV PUSH 09/07/17 17:45 (Ferrous Sulfate) 325 mg BID PO 09/07/17 21:00 09/10/17 09:12 (Vistaril) 75 mg Q6H PRN PO 09/07/17 21:45 09/09/17 15:17 (Calcium Gluconate Inj) 1 gm UNSCH PRN IV PUSH 09/08/17 10:15 (Pepcid) 20 mg BID PO 09/08/17 11:00 09/10/17 09:13 Family Psych History Patient reports that her father is bipolar and has Drug use disorder, and her mother has anxiety Social History Patient was born and raised in [facility], she lives with her mother in his [place], she is single, unemployed at the moment, she has some college credits. Patient's Strengths (min. 2) Family support, established outpatient therapy. Physical Exam No tremors, no EPS, no psychomotor agitation or retardation, no stiffness Vital Signs Vital Signs Date Time Temp Pulse Resp B/P (MAP) Pulse Ox O2 Delivery O2 Flow Rate FiO2 09/10/17 11:51 98.7 17 09/10/17 11:50 101 122/83 (96) Lab Results Test 09/10/17 09:20 09/10/17 10:33 Urine Color YELLOW Urine Turbidity CLEAR Urine pH 6.5 Urine Specific [place] 1.017 Urine Protein 30 mg/dL Urine Glucose (UA) NEG mg/dL Urine Ketones NEG mg/dL Urine Occult Blood TRACE Urine Nitrite NEG Urine Bilirubin NEG Urine Urobilinogen LESS THAN 2.0 MG/DL Urine Leukocyte Esterase TRACE Urine RBC 3 /hpf Urine WBC 2 /hpf Urine Squamous Epithelial Cells 1 /hpf Urine Bacteria OCC /hpf Urine Hyaline Casts 1 /lpf Urine Mucus FEW /lpf White Blood Count 12.6 TH/MM3 Red Blood Count 3.63 MIL/MM3 Hemoglobin 10.5 GM/DL Hematocrit 31.8 % Mean Corpuscular Volume 87.5 FL Mean Corpuscular Hemoglobin 29.0 PG Mean Corpuscular Hemoglobin Concent 33.2 % Red Cell Distribution Width 16.2 % Platelet Count 229 TH/MM3 Mean Platelet Volume 8.4 FL Neutrophils (%) (Auto) 70.8 % Lymphocytes (%) (Auto) 20.5 % Monocytes (%) (Auto) 7.3 % Eosinophils (%) (Auto) 1.2 % Basophils (%) (Auto) 0.2 % Neutrophils # (Auto) 8.9 TH/MM3 Lymphocytes # (Auto) 2.6 TH/MM3 Monocytes # (Auto) 0.9 TH/MM3 Eosinophils # (Auto) 0.1 TH/MM3 Basophils # (Auto) 0.0 TH/MM3 CBC Comment AUTO DIFF Differential Comment AUTO DIFF CONFIRMED Total Bilirubin 0.2 MG/DL Direct Bilirubin LESS THAN 0.1 MG/DL Indirect Bilirubin 0.1 MG/DL Aspartate Amino Transf (AST/SGOT) 13 U/L Alanine Aminotransferase (ALT/SGPT) 11 U/L Alkaline Phosphatase 116 U/L Total Protein 6.7 GM/DL Albumin 2.4 GM/DL Date/Time Source Procedure Growth Status 09/07/17 14:35 Urine Clean Catch Urine Culture - Final 50-100,000 CFU/ML MIXED GRAM POSITIVE... Complete Mental Status Examination Appearance: Appropriate Consciousness: Alert Orientation: x4 Motor Activity: Normal gait Speech: Unremarkable Language: Adequate Fund of Knowledge: Adequate Attention and Concentration: Adequate Memory: Unremarkable Mood: Appropriate Affect: Appropriate Thought Process & Associations: Intact Thought Content: Appropriate Hallucination Type: None Delusion Type: None Suicidal Ideation: No Suicidal Plan: No Suicidal Intention: No Homicidal Ideation: No Homicidal Plan: No Homicidal Intention: No Insight: Adequate Judgment: Adequate Assessment & Plan Problem List: (1) Adjustment disorder with mixed anxiety and depressed mood ICD Codes: F43.23 - Adjustment disorder with mixed anxiety and depressed mood Assessment & Plan: On psychiatric evaluation today the patient is calm, cooperative, pleasant, she reports sense of frustration, overwhelmed is, anxiety most probably secondary to her current medical acute decompensation. She denies hopelessness, she denies helplessness, she denies anhedonia, she denies problems with sleep, with appetite, she denies suicidal and homicidal ideation, she denies visual and auditory hallucinations. Seems to me like her current reported neuropsychiatric symptoms are most probably related with adjustment disorder related with her medical conditions rather than to a memory major psychiatric illness decompensation. The patient has extensive history of polysubstance dependence, but she is now in full sustained remission. She is history motivated to continue sobriety. She has been engage in a weekly therapy for mood and substance abuse. The patient preferred not to take medications until she delivers, which I agree with. I also agree to treat her anxiety with hydroxyzine 50 mg every 8 hours. Another option could be Benadryl 50 mg, or gabapentin 300 mg 3 times a day. Try to avoid as much as possible narcotics due to her history of polysubstance dependence. Brief supportive psychotherapy, motivation and psychoeducation provided. The patient was widely educated about the importance of close motorization due to her high risk of psychiatric decompensations in the pre-/post . Assessment & Plan Estimated LOS: Kip Montalvo MD Sep 10, 2017 13:23
[2017-09-10] MEDS: hydrOXYzine PAMOATE 25 MG CAP PO PRN (14:27)
[2017-09-11 01:19] VITALS: BP 129/85; PULSE 87
[2017-09-11 01:22] VITALS: RESP 20
[2017-09-11] MEDS: ACETAMINOPHEN 325 MG TAB PO PRN (01:22)
[2017-09-11 05:42] VITALS: BP 118/76; PULSE 87
[2017-09-11 05:43] VITALS: RESP 18
--- NOTE | 2017-09-11 08:07 | PD.OB.ANTE ---
Subjective Diagnosis: (1) Pre-eclampsia during in third trimester, antepartum (2) Dichorionic diamniotic twin in third trimester Interval History 32 yo at 31 5/7 weeks with twin IUP here day 5 for symptoms of pre eclampsia. BPs have resolved. Serology normal proteinuria (900 mg/24 hours) being repeated. surveillance x 2 reassuring . No PTL Has received steroids and now on baby aspirin. Has had a migraine earlier but did not discuss at visit this am. Objective Vital Signs Vital Signs Date Time Temp Pulse Resp B/P (MAP) Pulse Ox O2 Delivery O2 Flow Rate FiO2 09/11/17 05:43 18 09/11/17 05:42 87 118/76 (90) 09/11/17 02:22 18 09/11/17 01:22 20 09/11/17 01:19 87 129/85 (100) 09/10/17 23:00 96 122/83 (96) 09/10/17 23:00 97.8 09/10/17 22:59 18 09/10/17 20:22 98.1 09/10/17 20:21 18 09/10/17 20:20 99 124/73 (90) 09/10/17 16:15 17 09/10/17 16:03 99 125/83 (97) 09/10/17 16:00 98.0 09/10/17 14:30 18 09/10/17 14:24 93 133/86 (102) 09/10/17 11:51 98.7 17 09/10/17 11:50 101 122/83 (96) 09/10/17 09:16 18 09/10/17 09:15 95 135/86 (102) Lab & Micro Results Test 09/10/17 09:20 09/10/17 10:33 Urine Color YELLOW Urine Turbidity CLEAR Urine pH 6.5 Urine Specific [place] 1.017 Urine Protein 30 mg/dL Urine Glucose (UA) NEG mg/dL Urine Ketones NEG mg/dL Urine Occult Blood TRACE Urine Nitrite NEG Urine Bilirubin NEG Urine Urobilinogen LESS THAN 2.0 MG/DL Urine Leukocyte Esterase TRACE Urine RBC 3 /hpf Urine WBC 2 /hpf Urine Squamous Epithelial Cells 1 /hpf Urine Bacteria OCC /hpf Urine Hyaline Casts 1 /lpf Urine Mucus FEW /lpf White Blood Count 12.6 TH/MM3 Red Blood Count 3.63 MIL/MM3 Hemoglobin 10.5 GM/DL Hematocrit 31.8 % Mean Corpuscular Volume 87.5 FL Mean Corpuscular Hemoglobin 29.0 PG Mean Corpuscular Hemoglobin Concent 33.2 % Red Cell Distribution Width 16.2 % Platelet Count 229 TH/MM3 Mean Platelet Volume 8.4 FL Neutrophils (%) (Auto) 70.8 % Lymphocytes (%) (Auto) 20.5 % Monocytes (%) (Auto) 7.3 % Eosinophils (%) (Auto) 1.2 % Basophils (%) (Auto) 0.2 % Neutrophils # (Auto) 8.9 TH/MM3 Lymphocytes # (Auto) 2.6 TH/MM3 Monocytes # (Auto) 0.9 TH/MM3 Eosinophils # (Auto) 0.1 TH/MM3 Basophils # (Auto) 0.0 TH/MM3 CBC Comment AUTO DIFF Differential Comment AUTO DIFF CONFIRMED Total Bilirubin 0.2 MG/DL Direct Bilirubin LESS THAN 0.1 MG/DL Indirect Bilirubin 0.1 MG/DL Aspartate Amino Transf (AST/SGOT) 13 U/L Alanine Aminotransferase (ALT/SGPT) 11 U/L Alkaline Phosphatase 116 U/L Total Protein 6.7 GM/DL Albumin 2.4 GM/DL Date/Time Source Procedure Growth Status 09/07/17 14:35 Urine Clean Catch Urine Culture - Final 50-100,000 CFU/ML MIXED GRAM POSITIVE... Complete Physical Exam GENERAL: Well-nourished, well-developed patient. CARDIOVASCULAR: Regular rate and rhythm without murmurs, gallops, or rubs. RESPIRATORY: Breath sounds equal bilaterally. No accessory muscle use. FH 37 cm first baby not vertex no significant edema EXTREMITIES: No cyanosis or edema, non-tender, without signs of DVT. Assessment and Plan Problem List: (1) Pre-eclampsia during in third trimester, antepartum ICD Codes: O14.93 - Unspecified pre-eclampsia, third trimester Status: Acute (2) Dichorionic diamniotic twin in third trimester ICD Codes: O30.043 - Twin , dichorionic/diamniotic, third trimester Assessment and Plan 32 yo with di/di twin at 31w3d admit 09/07/17 for multiple complaints, new elevated BP and proteinuria, ruled in for Preeclampsia on 24h urine collection 1) PreEclampsia: mild at this time, continue to monitor closely due to inconsistent symptoms/complaints; plan for BPP and growth u/s today; last growth scan in office 08/07/17 with Twin A 64%tile and Twin B 68%tile - 24h urine resulted 09/08/17 with 908mg protein - PIH labs wnl at this time with normal AST/ALT/plts/UA; continue to monitor every other day - continue NST qshift and twice weekly BPP, ordered today - inconsistent RUQ pain, liver/gallbladder u/s on 09/08/17 normal/negative - pt aware if delivery indicated will be if malpresentation persistent and if symptoms severe with unfavorable Reyes's score 2) admission UA suggestive of infection; culture pending, on Macrobid bid since admit 3) status: di/di twins, R NST x 2 currently, plan BPP and growth scan today, last 08/07/17 with A 64%tile and B 68% tile; malpresentation at that time Breech/Transverse 09/10/17 8:30 Twin IUP at 31 + weeks pre eclampsia without severe feature hx of mental health issues (MDD vs BPD 1) hx of substance use in remission watch for progression of pre eclampsia watch for IUGR, discordancy, PTL continue assessment with repeat BPP, repeat labs and psych evalution. I would prefer she not take psych meds at this time. 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 Lu Brice MD Sep 11, 2017 08:07
--- NOTE | 2017-09-11 08:09 | HHI.DCPOC ---
Discharge Care Plan Report Symptoms to Your Doctor -Temperature above 100.5 degrees -Redness, of incision or excessive or foul smelling drainage -Unusual pain or calf pain -Increased vaginal bleeding -Painful or difficulty urinating -Feelings of extreme sadness or anxiety after 2 weeks Goals to Promote Your Health * To prevent worsening of your condition and complications * To maintain your health at the optimal level Directions to Meet Your Goals Take your medications as prescribed Follow your dietary instruction Follow activity as directed Ensure plenty of rest for recovery Drink fluids for hydration Keep your appointments as scheduled Take your immunizations and boosters as scheduled If your symptoms worsen call your PCP, if no PCP go to Urgent Care Center or Emergency Room Smoking is Dangerous to Your Health. Avoid second hand smoke Call the 24-hour crisis hotline for domestic abuse at Lu Brice MD Sep 11, 2017 08:09
[2017-09-11] MEDS: DOCUSATE SODIUM 100 MG CAP PO SCH ×2 (09:16→09:17)
[2017-09-11] MEDS: MULTIVIT/MIN/PREN/FOL AC/IRON PRENATAL TAB PO SCH (09:16)
[2017-09-11] MEDS: FAMOTIDINE 20 MG TAB PO SCH (09:16)
[2017-09-11] MEDS: FERROUS SULFATE 325 MG (65 MG ELEMENTAL IRON) TAB PO SCH (09:16)
[2017-09-11 09:23] VITALS: BP 118/80; PULSE 100
[2017-09-11 09:37] VITALS: RESP 16; TEMP 98
== END 2017-09-11 14:16 | disposition home or self-care (01) | DRG 781 ==
LOC: HOBED 14:03 → H2EA 17:39 → OBSVTOIN 17:39
PROVIDERS: ADMIT Obstetrics & Gynecology; ATTEND Obstetrics & Gynecology
DX: O14.03 Mild to moderate pre-eclampsia, third trimester (principal); O99.353 Diseases of the nervous system complicating pregnancy, third trimester; O99.343 Other mental disorders complicating pregnancy, third trimester; F43.23 Adjustment disorder with mixed anxiety and depressed mood; H53.8 Other visual disturbances; M79.7 Fibromyalgia; J45.909 Unspecified asthma, uncomplicated; O99.513 Diseases of the respiratory system complicating pregnancy, third trimester; G43.909 Migraine, unspecified, not intractable, without status migrainosus; F31.9 Bipolar disorder, unspecified; Z3A.31 31 weeks gestation of pregnancy; Z87.440 Personal history of urinary (tract) infections; O30.043 Twin pregnancy, dichorionic/diamniotic, third trimester; O99.213 Obesity complicating pregnancy, third trimester; F60.9 Personality disorder, unspecified
CPT/HCPCS: 59025; 76705; 76816; 76819; 76820; 80053; 80076; 80307; 81001; 82570; 82575; 82731; 84156; 84157; 84550; 85025; 85027; 87086; G0481; J0702; Q0177

== ENCOUNTER 2017-09-17 12:10 | Inpatient (IN) | payer OTHER ==
[2017-09-17] VITALS (7 sets, daily range): BP systolic 135–169; BP diastolic 82–98; PULSE 106–115; RESP 16–18; TEMP 97.6–98.4
[~2017-09-17] VITALS: Ht 160 cm; Wt 107.0 kg
[~2017-09-17 12:10] MED LIST changes: -NITR50CA27 PO; +ZANT150T2 PO; -ZITHTAB PO
--- NOTE | 2017-09-17 13:11 | HHI.HP ---
HPI Chief Complaint elevated blood pressure and a twin gestation Date Seen: Sep 17, 2017 Time Seen: 13:00 Travel History International Travel<30 Days: No Contact w/Intl Traveler<30Days: No Known Affected Area: No History of Present Illness HPI Patient 32-year-old white female at 32-33 weeks with twins and induced hypertension, patient's been in the hospital recently for a week for this and was sent home and is not surprising she had high pressures at home and came back, she has no pain leakage of fluid or bleeding. Babies are active. Heart rate tracings are reactive. No contractions seen. Patient does complain of visual scotomata with flashing sparkles and lites like a bug flying around in her vision. She has a history of headaches but is not really having many headaches at this time, she and is complaining of swelling in her legs Weeks Gestation: 32 Para: 0 : 2 History Obstetric History Obstetric History 2 early losses PIH with this with admission to the hospital at least once for a week and she's had several 24-hour proteins done Past Surgical History Narrative Surgical She's had a tonsillectomy and a vaginal cyst removed Family History Family History: Social History Alcohol Use: No Tobacco Use: No Substance Abuse: No Allergies-Medications (Allergen,Severity, Reaction): Coded Allergies: sertraline (Verified Allergy, Severe, Swelling, 09/08/17) TONGUE SWELLING *ANGIOEDEMA* Home Meds Reported Medications Ranitidine (Zantac) 150 Mg Tab, 150 MG PO BID for Reduce Stomach Acid, #60 TAB 0 Refills 09/08/17 Vit W/ Docusate-Fe Fu (Se-Lorraine 19 29-1 mg) 29 Mg Iron-1 Mg-25 Mg Tab, 1 TAB PO DAILY for Nutritional Supplement, TAB 0 Refills 05/24/17 Discontinued Reported Medications Nitrofurantoin Macrocrystal (Macrodantin) 50 Mg Cap, 50 MG PO BID for Infection , CAP 0 Refills 05/24/17 Review of Systems General / Constitutional: No: Fever, Weight Gain, Chills, Other Eyes: Visual changes, No: Diploplia, Blurred Vision, Pain, Photophobia HENT: No: Headaches, Vertigo, Lightheadedness Cardiovascular: No: Irregular Rhythm, Chest Pain or Discomfort, Palpitations, Tachycardia, Syncope, Varicosities, Edema, Cyanosis Respiratory: No: Cough, Short of Breath, Other Gastrointestinal: No: Nausea, Vomiting, Diarrhea Genitourinary: No: Decreased Urinary Output, Oliguria Musculoskeletal: Edema, No: Limited ROM, Weakness, Cramping, Pain Skin: No Rash, No Itching, No Dryness, No Lumps, No Change in Pigmentation, No Change in Nails, No Alopecia, No Lesions Neurologic: No: Weakness, Dizziness, Syncope, Focal Abnormalities, Coordination Problem, Headache, Slurred Speech, Seizures Psychiatric: No: Depression, Suicidal Ideations, Homicidal Ideation Endocrine: No: Heat Intolerance, Cold Intolerance, Polydipsia, Polyuria, Other Physical Exam Narrative GENERAL: Well-nourished, well-developed patient. SKIN: Warm and dry. HEAD: Normocephalic and atraumatic. EYES: No scleral icterus. No injection or drainage. ENT: No nasal drainage noted. Mucous membranes pink. Airway patent. NECK: Supple, trachea midline. No JVD. CARDIOVASCULAR: Regular rate and rhythm without murmurs, gallops, or rubs. RESPIRATORY: Breath sounds equal bilaterally. No accessory muscle use. BREASTS: Bilateral exam showed no masses , no retractions, no nipple discharge. ABDOMEN/GI: Abdomen soft, non-tender, bowel sounds present, no rebound, no guarding Gravid to [-36] weeks size Fundal Height: [-36]twins GENITOURINARY: Membranes: [intact ] Uterine Contractions: [-none] FHT's: Category: [1-] Baseline: [-133/135] Reactive: [-R] Variability: [-mod] Decels: [none-] EXTREMITIES: No cyanosis 2-3 + pretibial edema. BACK: Nontender without obvious deformity. No CVA tenderness. NEUROLOGICAL: Awake and alert. Motor and sensory grossly within normal limits. Five out of 5 muscle strength in all muscle groups. Normal speech. DTRs 2 + Caprini VTE Risk Assessment Caprini VTE Risk Assessment: No/Low Risk (score <= 1) Caprini Risk Assessment Model Point Value = 1 Point Value = 2 Point Value = 3 Point Value = 5 Age 41-60 Minor surgery BMI > 25 kg/m2 Swollen legs Varicose veins or History of unexplained or recurrent spontaneous Oral contraceptives or hormone replacement Sepsis (< 1 month) Serious lung disease, including pneumonia (< 1 month) Abnormal pulmonary function Acute myocardial infarction Congestive heart failure (< 1 month) History of inflammatory bowel disease Medical patient at bed rest Age 61-74 Arthroscopic surgery Major open surgery (> 45 min) Laparoscopic surgery (> 45 min) Malignancy Confined to bed (> 72 hours) Immobilizing plaster cast Central venous access Age >= 75 History of VTE Family history of VTE Factor V Leiden Prothrombin [id number] Lupus anticoagulant Anticardiolipin antibodies Elevated serum homocysteine Heparin-induced thrombocytopenia Other congenital or acquired thrombophilia Stroke (< 1 month) Elective arthroplasty Hip, pelvis, or leg fracture Acute spinal cord injury (< 1 month) Prophylaxis Regimen Total Risk Factor Score Risk Level Prophylaxis Regimen 0-1 Low Early ambulation 2 Moderate Order ONE of the following: *Sequential Compression Device (SCD) *Heparin 5000 units SQ BID 3-4 Higher Order ONE of the following medications: *Heparin 5000 units SQ TID *Enoxaparin/Lovenox 40 mg SQ daily (WT < 150 kg, CrCl > 30 mL/min) *Enoxaparin/Lovenox 30 mg SQ daily (WT < 150 kg, CrCl > 10-29 mL/min) *Enoxaparin/Lovenox 30 mg SQ BID (WT < 150 kg, CrCl > 30 mL/min) AND/OR *Sequential Compression Device (SCD) 5 or more Highest Order ONE of the following medications: *Heparin 5000 units SQ TID (Preferred with Epidurals) *Enoxaparin/Lovenox 40 mg SQ daily (WT < 150 kg, CrCl > 30 mL/min) *Enoxaparin/Lovenox 30 mg SQ daily (WT < 150 kg, CrCl > 10-29 mL/min) *Enoxaparin/Lovenox 30 mg SQ BID (WT < 150 kg, CrCl > 30 mL/min) AND *Sequential Compression Device (SCD) Data Data Labs Urine dip on OB ED was high protein and blood Assessment/Plan Assessment and Plan Patient is 32-year-old white female at 32-1/2 weeks with twins and -induced hypertension. Patient has no history of hypertension prior to this been running high for the last several weeks. The pressure here 153/94 144/99 She was in hospital for about a week to weeks ago and was sent home. She has visual changes is the only new future with the sparkles flashing lights in her eyes. She complains of swelling increase in lower extremities and has 2- 3+ pretibial edema now. Urine dipstick here on OB ED today shows high amount of protein in the urine as well as blood. NST is reactive for both babies and no contractions. Patient sees Dr. Brice for care and she is scheduled for a section in October- Twin at 32-33 weeks with the -induced hypertension/preeclampsia Plan- admit to the hospital collect 24-hour urine protein, check PIH blood lab, maintain bedrest as much as possible Dennis Wolfe II, MD Sep 17, 2017 13:11
[2017-09-17] MEDS ORDERED: CALCIUM GLUCONATE 10% 1 GM/10 ML VIAL IV PUSH PRN (13:15)
[2017-09-17] MEDS ORDERED: ACETAMINOPHEN 325 MG TAB PO PRN (13:15)
[2017-09-17] MEDS ORDERED: ZOLPIDEM TARTRATE 5 MG TAB PO PRN (13:15)
[2017-09-17] MEDS ORDERED: DOCUSATE SODIUM 100 MG CAP PO PRN (13:15)
[2017-09-17] MEDS ORDERED: NIFEdipine 10 MG CAP PO PRN (13:15)
[2017-09-17] MEDS ORDERED: SODIUM CHLORIDE 0.9% FLUSH 10 ML FLUSH IV FLUSH PRN (13:15)
[2017-09-17] MEDS ORDERED: ONDANSETRON HCL 4 MG/2 ML VIAL IV PUSH PRN (13:15)
[2017-09-17] MEDS ORDERED: BETAMETHASONE SOD PHOS/ACETATE SUSP 30 MG/5 ML VIAL IM SCH (14:00)
[2017-09-17 14:20] LABS: HEMATOCRIT 33.5 % (35.0-46.0); HEMOGLOBIN 11.1 GM/DL (11.6-15.3); MEAN CELL VOLUME 87.5 FL (80.0-100.0); MEAN CORPUSCULAR HGB CONC 33.1 % (32.0-36.0); MEAN PLATELET VOLUME 8.6 FL (7.0-11.0); PLATELET COUNT 224 TH/MM3 (150-450); RED BLOOD COUNT 3.83 MIL/MM3 (4.00-5.30); RED CELL DISTRIBUTION WIDTH 16.5 % (11.6-17.2); WHITE BLOOD COUNT 11.6 TH/MM3 (4.0-11.0)
[2017-09-17 14:50] LABS: ALBUMIN 2.2 GM/DL (3.4-5.0); AST (GOT) 14 U/L (15-37); BICARBONATE 19.8 MEQ/L (21.0-32.0); BLOOD UREA NITROGEN 10 MG/DL (7-18); CALCIUM 9.4 MG/DL (8.5-10.1); CHLORIDE 107 MEQ/L (98-107); CREATININE 0.55 MG/DL (0.50-1.00); GLOMERULAR FILTRATION RATE 129 ML/MIN (>89); GLUCOSE,RANDOM 117 MG/DL (74-106); SODIUM (NA) 138 MEQ/L (136-145)
[2017-09-17 14:52] LABS: ALT (GPT) 11 U/L (10-53)
[2017-09-17 14:53] LABS: ALKALINE PHOSPHATASE 127 U/L (45-117); TOTAL BILIRUBIN ADULT 0.2 MG/DL (0.2-1.0); TOTAL PROTEIN 6.3 GM/DL (6.4-8.2)
[2017-09-17] MEDS ORDERED: BUSP10TA PO (15:08)
[2017-09-17 15:10] LABS: BACTERIA, URINE MOD /hpf; BILIRUBIN, URINE NEG (NEG); BLOOD, URINE SMALL (NEG); CALCIUM OXALATE CRYSTALS,URINE MANY /hpf; GLUCOSE,URINE NEG (NEG); HYALINE CAST, URINE 3 /lpf (RARE); KETONE, URINE NEG (NEG); MUCUS URINE FEW /lpf (OCC); NITRITE,URINE NEG (NEG); PH, URINE 6.5 (5.0-8.5); SQUAMOUS EPITHELIAL CELL URINE 1 /hpf (0-5); URINE COLOR YELLOW (YELLW/STRAW); URINE LEUKOCYTE ESTERASE NEG (NEG)
--- NOTE | 2017-09-17 16:33 | HHI.PR ---
WATER RESOURCE ENGINEER Note Note Note placed in error Shane Ponce MD Sep 17, 2017 16:33
[2017-09-17] MEDS ORDERED: WITCH HAZEL 50%/GLYCERIN 12.5% 40 PAD JAR TOPICAL PRN ×2 (17:00→17:30)
[2017-09-17] MEDS: busPIRone HCL 10 MG TAB PO SCH ×2 (17:30→21:33)
--- NOTE | 2017-09-17 19:42 | PD.OB.ANTE ---
Subjective Interval History sitting up with crocheting and no complaints other than measeured BPs today high. Did describe scotoma however. babies moving today. Did not move much yesterday no discharge, labor signs Objective Lab & Micro Results Test 09/17/17 12:26 09/17/17 13:15 Urine Color YELLOW Urine Turbidity HAZY Urine pH 6.5 Urine Specific Hooks 1.028 Urine Protein 300 mg/dL Urine Glucose (UA) NEG mg/dL Urine Ketones NEG mg/dL Urine Occult Blood SMALL Urine Nitrite NEG Urine Bilirubin NEG Urine Urobilinogen LESS THAN 2.0 MG/DL Urine Leukocyte Esterase NEG Urine RBC 4 /hpf Urine WBC 3 /hpf Urine Squamous Epithelial Cells 1 /hpf Urine Calcium Oxalate Crystals MANY /hpf Urine Bacteria MOD /hpf Urine Hyaline Casts 3 /lpf Urine Mucus FEW /lpf Microscopic Urinalysis Comment CULTURE INDICATED White Blood Count 11.6 TH/MM3 Red Blood Count 3.83 MIL/MM3 Hemoglobin 11.1 GM/DL Hematocrit 33.5 % Mean Corpuscular Volume 87.5 FL Mean Corpuscular Hemoglobin 29.0 PG Mean Corpuscular Hemoglobin Concent 33.1 % Red Cell Distribution Width 16.5 % Platelet Count 224 TH/MM3 Mean Platelet Volume 8.6 FL Blood Urea Nitrogen 10 MG/DL Creatinine 0.55 MG/DL Random Glucose 117 MG/DL Total Protein 6.3 GM/DL Albumin 2.2 GM/DL Calcium Level 9.4 MG/DL Uric Acid 5.2 MG/DL Alkaline Phosphatase 127 U/L Aspartate Amino Transf (AST/SGOT) 14 U/L Alanine Aminotransferase (ALT/SGPT) 11 U/L Total Bilirubin 0.2 MG/DL Sodium Level 138 MEQ/L Potassium Level 3.8 MEQ/L Chloride Level 107 MEQ/L Carbon Dioxide Level 19.8 MEQ/L Anion Gap 11 MEQ/L Estimat Glomerular Filtration Rate 129 ML/MIN Date/Time Source Procedure Growth Status 09/17/17 17:00 Genital Vaginal Group B Streptococcus Screen Pending Received 09/17/17 12:26 Urine Clean Catch Urine Culture Pending Received Physical Exam GENERAL: Well-nourished, well-developed patient. CARDIOVASCULAR: Regular rate and rhythm without murmurs, gallops, or rubs. RESPIRATORY: Breath sounds equal bilaterally. No accessory muscle use. ABDOMEN/GI: Abdomen soft, non-tender. Fundus: [-] GENITOURINARY: External Genitalia: intact and normal in appearance strips category 1 x2 EXTREMITIES: No cyanosis or edema, non-tender, without signs of DVT. Assessment and Plan Assessment and Plan Patient is 32-year-old white female at 32-1/2 weeks with twins and -induced hypertension. Patient has no history of hypertension prior to this been running high for the last several weeks. The pressure here 153/94 144/99 She was in hospital for about a week to weeks ago and was sent home. She has visual changes is the only new future with the sparkles flashing lights in her eyes. She complains of swelling increase in lower extremities and has 2- 3+ pretibial edema now. Urine dipstick here on OB ED today shows high amount of protein in the urine as well as blood. NST is reactive for both babies and no contractions. Patient sees Dr. Brice for care and she is scheduled for a section in October- Twin at 32-33 weeks with the -induced hypertension/preeclampsia Plan- admit to the hospital collect 24-hour urine protein, check PIH blood lab, maintain bedrest as much as possible 09/17/17 19;30 calm in bed with no complaints 169/98 on first BP Repeated with manual cuff started on labatelol po BID Lu Brice MD Sep 17, 2017 19:42
[2017-09-17] MEDS: LABETALOL HCL 100 MG TAB PO SCH (21:33)
[2017-09-17] MEDS: SODIUM CHLORIDE 0.9% FLUSH 10 ML FLUSH IV FLUSH SCH (21:33)
[2017-09-17] MEDS: FAMOTIDINE 20 MG TAB PO SCH (21:33)
[2017-09-18] VITALS (11 sets, daily range): BP systolic 131–145; BP diastolic 81–104; PULSE 93–108; RESP 18; TEMP 97.8–98
[2017-09-18] MEDS: busPIRone HCL 10 MG TAB PO SCH ×3 (05:38→22:00)
--- NOTE | 2017-09-18 08:13 | HHI.PR ---
FORWARDER OPERATOR Note Note S: Doing well, no complaints, did not sleep well, no headache, epigastric pain or other quadrant pain endorsed movement O: Fetus: FHTs: - A: 140s 150s moderate variability accelerations present no decelerations - B: 120s and moderate variability accelerations present no decelerations Moraida: A/P: 32 yo at 32w5d 1. Winston gestation: BID EFM, Cat 1 tracings x2 - EFW (09/10): A = 1838g (47%), B = 1928g (62%), 7.3% discord. Anterior placenta. - US on 09/17 = 8/ BPP x2, - Malpresentation of Baby A, aware of need for at time of delivery. - Female fetus x2 - s/p BMZ on 09/09, no need to repeat at this time. 2. Preeclampsia w/o severe features, dx last week at time of observation for new elevated BPs. - HELLP labs WNL on arrival, BPs mild range continue to be mild range overnight no severe's, patient is asymptomatic - 24hr urine on 09/11 = 889mg (no baseline to compare), repeat pending here unlikely to change coordinator - Labetalol 100 mg BID started yesterday, continue at this time - Dispo: Likely d/c home after 24hr urine results and FU as outpatient, continue w/ 2x/week BPPs, consider delivery at 34w 3. SANAM / history of polysubstance abuse / Bipolar disorder: stable on no meds during , no use of drugs during , s/p psych consult last admission. 4. VZV / Rubella non immune: vaccines rec . Shane Ponce MD Sep 18, 2017 08:13
[2017-09-18] MEDS: LABETALOL HCL 100 MG TAB PO SCH ×2 (08:53→21:13)
[2017-09-18] MEDS: FAMOTIDINE 20 MG TAB PO SCH ×2 (08:53→21:13)
[2017-09-18] MEDS: MULTIVIT/MIN/PREN/FOL AC/IRON PRENATAL TAB PO SCH (08:53)
[2017-09-18] MEDS: SODIUM CHLORIDE 0.9% FLUSH 10 ML FLUSH IV FLUSH SCH ×2 (08:53→21:12)
[2017-09-18 14:02] LABS: CREATININE 24 HOUR, URINE 1.44 GM/24HR (0.63-2.50)
[2017-09-18 16:24] LABS: AUTOMATED NEUTROPHIL # 7.3 TH/MM3 (1.8-7.7); BASOPHIL % 0.3 % (0.0-2.0); EOSINOPHIL # 0.2 TH/MM3 (0-0.4); EOSINOPHIL % 1.8 % (0.0-4.0); HEMATOCRIT 34.3 % (35.0-46.0); HEMOGLOBIN 11.3 GM/DL (11.6-15.3); LYMPH % 21.9 % (9.0-44.0); LYMPHOCYTE # 2.4 TH/MM3 (1.0-4.8); MEAN CELL VOLUME 88.2 FL (80.0-100.0); MEAN CORPUSCULAR HGB CONC 32.9 % (32.0-36.0); MEAN PLATELET VOLUME 8.5 FL (7.0-11.0); MONO % 8.8 % (0.0-8.0); MONOCYTE # 0.9 TH/MM3 (0-0.9); NEUT % 67.2 % (16.0-70.0); PLATELET COUNT 216 TH/MM3 (150-450); RED BLOOD COUNT 3.89 MIL/MM3 (4.00-5.30); RED CELL DISTRIBUTION WIDTH 16.9 % (11.6-17.2); WHITE BLOOD COUNT 10.8 TH/MM3 (4.0-11.0)
[2017-09-18 16:43] LABS: ALBUMIN 2.2 GM/DL (3.4-5.0); AST (GOT) 15 U/L (15-37); BICARBONATE 24.7 MEQ/L (21.0-32.0); BLOOD UREA NITROGEN 8 MG/DL (7-18); CALCIUM 8.7 MG/DL (8.5-10.1); CHLORIDE 103 MEQ/L (98-107); GLUCOSE,RANDOM 129 MG/DL (74-106); SODIUM (NA) 137 MEQ/L (136-145)
[2017-09-18 16:46] LABS: ALKALINE PHOSPHATASE 126 U/L (45-117); ALT (GPT) 11 U/L (10-53); CREATININE 0.57 MG/DL (0.50-1.00); GLOMERULAR FILTRATION RATE 124 ML/MIN (>89); TOTAL BILIRUBIN ADULT 0.2 MG/DL (0.2-1.0); TOTAL PROTEIN 6.6 GM/DL (6.4-8.2)
[2017-09-18] MEDS ORDERED: LACTATED RINGER'S 1000 ML INJ 1,000 ML IV ONE (17:17)
[2017-09-18] MEDS: BETAMETHASONE SOD PHOS/ACETATE SUSP 30 MG/5 ML VIAL IM SCH (18:07)
--- NOTE | 2017-09-18 18:38 | HHI.PR ---
Addendum to Inpatient Note Addendum Reason: Additional Documentation Additional Information Consult Maternal Hx: 32 y/o white female at 32 5/7 weeks gestation with diagnosis of pre-eclampsia and twin Mother readmitted to [facility] on 09/17/17 secondary to elevated blood pressures and proteinuria Maternal Medications: PNV w/Iron, Vistaril, Ambien, macrodantin, pepcid, labatelol and acetaminophen Betamethasone 09/07/2017, 09/08/2017 and 09/18/17 at 1800 Medical History: Obesity, Migraines, Asthma, Bi-polar Disorder, Depression, Fibromyalgia Social: Marital status: single - father of baby not involved Resides locally with history of being homeless. Parents and grandparents present and actively involved with mother. Family Hx: Mother reports no genetic or inherited conditions. Substance Abuse: Denies. Initial urine tox is negative. Discussion: Nurse Practitioner met with mother and grandparents to discuss upcoming delivery of twins at 32 6/7 weeks gestation. C/section delivery is scheduled for am of 09/19/17 secondary to Pre-eclampsia. This consultation included generalized care of the baby in the NICU, common problems, complications and survival and/or disability potential if delivered at this time. Mother was provided with informational sheets regarding the development of the babies currently, an introduction to the NICU, and what to expect at the delivery. During our conversation I reviewed the expectations with delivery of an infant under these circumstances including delivery room atmosphere, resuscitation and stabilization. Also included in this review is the admission process to the NICU, including possible procedures such as intubation, CPAP, IV placement and gavage feedings. Discussed risk of jaundice and photherapy treatment. Additionally, there was a discussion of the disease processes that may affect an infant of this gestation, including but not limited to respiratory distress and nutritional concerns. Brief discussion on CPAP and/or ventilator support as needed for an of this gestation. There was a review of nutritional support challenges. Mother was encouraged to pump and breast feed. It was explained that there is an increased potential for neurodevelopmental delay secondary to prematurity itself, even if the infant does not have IVH or ROP. Support systems in place at [facility] were reviewed and included , Case Management and Ministry which the family may utilize. Mother requested a Case Management Consult, and that was related to her nurse. Expected discharge would likely occur closer ti the due date if the has an uncomplicated hospitalization. Greater than 50% of the time was spent with the patient. Deann Gamboa Sep 18, 2017 18:38
[2017-09-18] MEDS ORDERED: CITRIC ACID-SODIUM CITRATE LIQ 30 ML UDC PO SCH (19:00)
[2017-09-19] VITALS (28 sets, daily range): BP systolic 128–154; BP diastolic 63–109; PULSE 97–112; RESP 17–20; TEMP 98–98.2; O2SAT 99
[2017-09-19] MEDS: LACTATED RINGER'S 1000 ML INJ 1,000 ML IV SCH ×3 (01:00→13:51)
[2017-09-19] MEDS: busPIRone HCL 10 MG TAB PO SCH ×3 (06:00→21:12)
[2017-09-19] MEDS ORDERED: ceFAZolin 2 GM PREMIX 50 ML IV ONE (06:00)
[2017-09-19] MEDS ORDERED: MORPHINE SULFATE PF 5 MG/10 ML VIAL ONE (08:25)
--- NOTE | 2017-09-19 08:49 | PD.OB.ANTE ---
Subjective Interval History BPs 130/90 nephrotic syndrome with > 7.5 gm protein surveillance reassuring x 2 labs reassuring confusion over blood type and redrawn. for section now. Objective Vital Signs Vital Signs Date Time Temp Pulse Resp B/P (MAP) Pulse Ox O2 Delivery O2 Flow Rate FiO2 09/19/17 08:03 98.1 18 09/19/17 08:01 108 138/91 (107) 09/18/17 23:24 101 18 136/81 (99) 09/18/17 23:24 97.9 09/18/17 19:34 108 18 134/91 (105) 09/18/17 19:32 97.9 09/18/17 15:28 98.0 09/18/17 15:27 18 09/18/17 15:24 97 131/82 (98) Lab & Micro Results Test 09/18/17 15:45 White Blood Count 10.8 TH/MM3 Red Blood Count 3.89 MIL/MM3 Hemoglobin 11.3 GM/DL Hematocrit 34.3 % Mean Corpuscular Volume 88.2 FL Mean Corpuscular Hemoglobin 29.0 PG Mean Corpuscular Hemoglobin Concent 32.9 % Red Cell Distribution Width 16.9 % Platelet Count 216 TH/MM3 Mean Platelet Volume 8.5 FL Neutrophils (%) (Auto) 67.2 % Lymphocytes (%) (Auto) 21.9 % Monocytes (%) (Auto) 8.8 % Eosinophils (%) (Auto) 1.8 % Basophils (%) (Auto) 0.3 % Neutrophils # (Auto) 7.3 TH/MM3 Lymphocytes # (Auto) 2.4 TH/MM3 Monocytes # (Auto) 0.9 TH/MM3 Eosinophils # (Auto) 0.2 TH/MM3 Basophils # (Auto) 0.0 TH/MM3 CBC Comment DIFF FINAL Differential Comment Blood Urea Nitrogen 8 MG/DL Creatinine 0.57 MG/DL Random Glucose 129 MG/DL Total Protein 6.6 GM/DL Albumin 2.2 GM/DL Calcium Level 8.7 MG/DL Alkaline Phosphatase 126 U/L Aspartate Amino Transf (AST/SGOT) 15 U/L Alanine Aminotransferase (ALT/SGPT) 11 U/L Total Bilirubin 0.2 MG/DL Sodium Level 137 MEQ/L Potassium Level 4.0 MEQ/L Chloride Level 103 MEQ/L Carbon Dioxide Level 24.7 MEQ/L Anion Gap 9 MEQ/L Estimat Glomerular Filtration Rate 124 ML/MIN Date/Time Source Procedure Growth Status 09/17/17 17:00 Genital Vaginal Group B Streptococcus Screen - Preliminary RESULTS PENDING Resulted 09/17/17 12:26 Urine Clean Catch Urine Culture - Preliminary IMMATURE GROWTH - REINCUBATE Resulted Physical Exam GENERAL: Well-nourished, well-developed patient. CARDIOVASCULAR: Regular rate and rhythm without murmurs, gallops, or rubs. RESPIRATORY: Breath sounds equal bilaterally. No accessory muscle use. ABDOMEN/GI: Abdomen soft, non-tender. Fundus: [-] GENITOURINARY: External Genitalia: intact and normal in appearance Cervix: [-] Dilatation: [-] Effacement: [-] Station: [-] Presentation: [-] Membranes: [-] Uterine Contractions: [-] FHT's: Category: [-] Baseline: [-] Reactive: [-] Variability: [-] Decels: [-] EXTREMITIES: No cyanosis or edema, non-tender, without signs of DVT. Assessment and Plan Assessment and Plan Patient is 32-year-old white female at 32-1/2 weeks with twins and -induced hypertension. Patient has no history of hypertension prior to this been running high for the last several weeks. The pressure here 153/94 144/99 She was in hospital for about a week to weeks ago and was sent home. She has visual changes is the only new future with the sparkles flashing lights in her eyes. She complains of swelling increase in lower extremities and has 2- 3+ pretibial edema now. Urine dipstick here on OB ED today shows high amount of protein in the urine as well as blood. NST is reactive for both babies and no contractions. Patient sees Dr. Brice for care and she is scheduled for a section in October- Twin at 32-33 weeks with the -induced hypertension/preeclampsia Plan- admit to the hospital collect 24-hour urine protein, check PIH blood lab, maintain bedrest as much as possible 09/17/17 19;30 calm in bed with no complaints 169/98 on first BP Repeated with manual cuff started on labatelol po BID Lu Brice MD Sep 19, 2017 08:49
[2017-09-19] MEDS ORDERED: ONDANSETRON HCL 4 MG/2 ML VIAL IV PUSH PRN (09:00)
[2017-09-19] MEDS ORDERED: ZOLPIDEM TARTRATE 5 MG TAB PO PRN (09:00)
[2017-09-19] MEDS: MULTIVIT/MIN/PREN/FOL AC/IRON PRENATAL TAB PO SCH (09:00)
[2017-09-19] MEDS: FAMOTIDINE 20 MG TAB PO SCH ×2 (09:00→21:10)
[2017-09-19] MEDS ORDERED: KETOROLAC TROMETHAMINE 60 MG/2 ML (IM) VIAL IM PRN (09:00)
[2017-09-19] MEDS ORDERED: SODIUM CHLORIDE 0.9% FLUSH 10 ML FLUSH IV FLUSH PRN (09:00)
[2017-09-19] MEDS ORDERED: OXYTOCIN 30 UNITS-500ML PREMIX 500 ML IV ONE (09:00)
[2017-09-19] MEDS ORDERED: SIMETHICONE 80 MG CHEWABLE TAB PO PRN (09:00)
[2017-09-19] MEDS ORDERED: DOCUSATE SODIUM 50 MG/SENNA 8.6 MG TAB PO PRN (09:00)
[2017-09-19] MEDS: SODIUM CHLORIDE 0.9% FLUSH 10 ML FLUSH IV FLUSH SCH ×2 (09:00→21:11)
[2017-09-19] MEDS ORDERED: oxyCODONE/ACETAMINOPHEN 5 MG/325 MG TAB PO PRN ×2 (09:00)
[2017-09-19] MEDS ORDERED: OXYTOCIN 10 UNIT/ML AMP IV ONE (12:00)
[2017-09-19] MEDS ORDERED: ePHEDrine/NS 25 MG/5 ML SYRINGE IV ONE (12:00)
[2017-09-19] MEDS ORDERED: LACTATED RINGER'S 1000 ML INJ 2,000 ML IV ONE (12:00)
[2017-09-19] MEDS ORDERED: ceFAZolin INJ 1,000 MG VIAL IV ONE (12:00)
[2017-09-19] MEDS ORDERED: DEXAMETHASONE SOD PHOS 4 MG/ML VIAL IV ONE (12:00)
[2017-09-19] MEDS ORDERED: ONDANSETRON HCL 4 MG/2 ML VIAL IV ONE (12:00)
[2017-09-19] MEDS: LABETALOL HCL 100 MG TAB PO SCH ×2 (12:37→21:10)
[2017-09-19] MEDS ORDERED: EPIDURAL-NALOXONE HCL 0.4 MG/ML AMP IV PUSH PRN (13:00)
[2017-09-19] MEDS ORDERED: EPIDURAL-DIPHENHYDRAMINE HCL 50 MG/ML VIAL IV PUSH PRN (13:00)
[2017-09-19] MEDS ORDERED: EPIDURAL-DIPHENHYDRAMINE HCL 50 MG CAP PO PRN (13:00)
[2017-09-19] MEDS ORDERED: EPIDURAL-DO NOT ADMINISTER ANTICOAGULANTS PRN (13:00)
[2017-09-19] MEDS ORDERED: EPIDURAL-NO SYSTEMIC NARCOTICS PRN (13:00)
[2017-09-19] MEDS: BETAMETHASONE SOD PHOS/ACETATE SUSP 30 MG/5 ML VIAL IM SCH (15:09)
[2017-09-19 17:51] LABS: ALBUMIN 1.8 GM/DL (3.4-5.0); DIRECT BILIRUBIN ADULT 0.1 MG/DL (0.0-0.2)
[2017-09-19 17:53] LABS: INDIRECT BILIRUBIN 0.1 MG/DL (0.0-0.8); TOTAL BILIRUBIN ADULT 0.2 MG/DL (0.2-1.0); TOTAL PROTEIN 5.3 GM/DL (6.4-8.2)
[2017-09-19] MEDS ORDERED: OXYTOCIN 30 UNITS-500ML PREMIX 500 ML IV PRN (19:00)
[2017-09-19] MEDS: IBUPROFEN 600 MG TAB PO PRN (21:10)
[2017-09-20] VITALS (8 sets, daily range): BP systolic 127–155; BP diastolic 75–97; PULSE 90–109; RESP 18–20; TEMP 96.6–98.5; O2SAT 96–100
[2017-09-20] MEDS: LACTATED RINGER'S 1000 ML INJ 1,000 ML IV SCH (01:07)
[2017-09-20] MEDS: busPIRone HCL 10 MG TAB PO SCH ×3 (06:20→22:12)
--- NOTE | 2017-09-20 07:55 | PD.OB.DELI ---
Procedure Note Section Procedure Performed by Lu Brice Procedure: Primary Low Transverse Sec Indication for delivery: Maternal medical problems (pre eclampsia with nephrotic syndrome ) Informed consent obtained: For anesthesia, For procedure Confirmed correct: Patient, Procedure, Site, Time-out taken Anesthesia: Spinal Medication prior to procedure: As documented in eMAR Monitoring during procedure: Blood pressure monitoring, switchboard operator supervisor, doppler Urinary catheter: Inserted using sterile technique, To dependent drainage, ml urine output Sterile preparation: Duraprep, In usual fashion, With 2% chlorexidine ( Hibiclens) Position: Supine with wedge to right side Operative Features Skin Incision: Pfannenstiel Uterine Incision: Low transverse w/knife / blunt ext Membranes Ruptured: Artificially Presentation: Occiput anterior (twin a transverse twin b cephalic), Breech Delivery date: Sep 19, 2017 Delivery time: 09:30 Delivery of infant: Assisted Infant: Female, Multiple One Minute : 3, 7 Five Minute : 7 Status of infant: Viable Placenta delivered: Intact, Sent to pathology Medications: Oxytocin Estimated blood loss: 1000 Procedure tolerated: Well Maternal Condition: Stable Condition: Stable (both babies in NICU) Lu Brice MD Sep 20, 2017 07:55
[2017-09-20 08:41] LABS: AUTOMATED NEUTROPHIL # 10.8 TH/MM3 (1.8-7.7); BASOPHIL # 0.1 TH/MM3 (0-0.2); BASOPHIL % 0.3 % (0.0-2.0); EOSINOPHIL # 0.1 TH/MM3 (0-0.4); EOSINOPHIL % 0.8 % (0.0-4.0); HEMATOCRIT 27.4 % (35.0-46.0); HEMOGLOBIN 9.4 GM/DL (11.6-15.3); LYMPH % 20.7 % (9.0-44.0); LYMPHOCYTE # 3.3 TH/MM3 (1.0-4.8); MEAN CELL VOLUME 87.8 FL (80.0-100.0); MEAN CORPUSCULAR HEMOGLOBIN 30.3 PG (27.0-34.0); MEAN CORPUSCULAR HGB CONC 34.5 % (32.0-36.0); MEAN PLATELET VOLUME 8.4 FL (7.0-11.0); MONO % 9.7 % (0.0-8.0); MONOCYTE # 1.5 TH/MM3 (0-0.9); NEUT % 68.5 % (16.0-70.0); PLATELET COUNT 205 TH/MM3 (150-450); RED BLOOD COUNT 3.12 MIL/MM3 (4.00-5.30); RED CELL DISTRIBUTION WIDTH 17.1 % (11.6-17.2); WHITE BLOOD COUNT 15.8 TH/MM3 (4.0-11.0)
[2017-09-20] MEDS: FAMOTIDINE 20 MG TAB PO SCH ×2 (08:49→22:10)
[2017-09-20] MEDS: MULTIVIT/MIN/PREN/FOL AC/IRON PRENATAL TAB PO SCH (08:49)
[2017-09-20] MEDS: LABETALOL HCL 100 MG TAB PO SCH ×2 (08:51→22:10)
[2017-09-20] MEDS: IBUPROFEN 600 MG TAB PO PRN ×3 (08:51→22:11)
[2017-09-20] MEDS: SODIUM CHLORIDE 0.9% FLUSH 10 ML FLUSH IV FLUSH SCH (08:54)
[2017-09-20 09:21] LABS: BANDS 8 % (0-6); LYMPHOCYTES 22 % (9-44); METAMYELOCYTES 3 % (0-1); MONOCYTES 4 % (0-8); MYELOCYTES 1 % (0-0); NEUTROPHIL # MANUAL DIFF 11.7 TH/MM3 (1.8-7.7); POLYS (SEG NEUTROPHILS) 62 % (16-70)
--- NOTE | 2017-09-20 10:03 | MP ---
cc: LU MCMAHAN DATE OF SURGERY September 19, 2017 PREOPERATIVE DIAGNOSES 1. 32-6/7 week intrauterine with twins, breech, vertex. 2. Maternal preeclampsia with severe features including nephrotic syndrome. POSTOPERATIVE DIAGNOSES 1. 32-6/7 week intrauterine with twins, breech, vertex. 2. Maternal preeclampsia with severe features including nephrotic syndrome. 3. Delivered. PROCEDURE Primary low transverse segment section. ANESTHESIA Spinal with Duramorph. SURGEON MD Babs HOSE TENDER SHERIDAN Rich. FINDINGS The decision to proceed with section was based on maternal indication of continued elevated blood pressures requiring antihypertensive. Nephrotic syndrome levels of protein at 7.5 grams in 24 hours. There was no evidence of HELLP syndrome and evaluation was reassuring. Mom had received an additional dose of steroids the night before this and was walked to the back and underwent an uneventful section delivering a breech female with Apgars of 3 and 7 and a vertex female with Apgars of I believe 4 and 8 who was slightly bigger but I do not have the weight. There was minimal uterine atony, anterior and posterior placentae which were both sent. Cord bloods were obtained on both babies and cord gases were obtained although Twin A's cord gas was able to be run. Mom tolerated the procedure well with a blood loss of 1000 cc and was mildly hypertensive at the end of the case. The decision was made to watch before immediately beginning magnesium. The sponge, instrument and needle counts were correct. PROCEDURE The patient was walked to the operating room. She was administered spinal with Duramorph. She was placed in dorsal supine position with weight off the vena cava. The Acevedo catheter was inserted. Sequential stockings were placed on. She had 2 grams of Ancef IV. She was prepped and draped in the usual sterile fashion. A time-out was performed with all in attendance. Neonatology was in place with both the project landscape architect, Dr. Camara . After assuring adequate analgesia, a Pfannenstiel incision was made with a knife and carried down through to the rectus fascia with the Bovie on cutting. The rectus fascia was incised and taken off the rectus muscle superiorly and inferiorly. The rectus muscle in midline, the peritoneum was entered and the bladder was placed under gentle traction. A bladder flap was created in the lower uterine segment and incision made into the uterus which obtained clear fluid from the bag of Twin A which was actually in a transverse lie small parts up. However, it was possible to grasp the feet and do a podalic version and deliver the baby using classic Pinard maneuvers. There was a little difficulty in getting the head out due to extension but this was done in an atraumatic fashion. The cord clamping was delayed 45 seconds and it was then clamped x2, cut and she was handed to the project landscape architect in attending. Cord blood and cord gas were obtained. Then attention was directed to Twin B who was vertex. She was brought down to the incision with fundal pressure and then the membranes were ruptured again revealing clear fluid. She was delivered from vertex position and the cord was clamped x2, after 45 seconds cut and she was handed to the neonatology in attending. Cord gas and cord blood was obtained. At this point both placentas were delivered intact. The uterus was cleaned quickly, exteriorized and massaged to reduce bleeding. It was closed with chromic in a running interlocking fashion and then a second horizontal imbricating layer. It was then replaced in the abdominal cavity and the incision was confirmed hemostatic. Irrigation was performed and then the rectus muscle was approximated with Vicryl, then the fascia was closed with #1 Vicryl. The subcutaneous layer was closed with 3-0 plain and the skin was closed with 4-0 Vicryl on a Jerel needle. Estimated blood loss was average, 1000. Sponge, instrument and needle counts correct. She tolerated the procedure well and she went to the recovery room in stable condition. Lu Mcmahan MD PPC/SSB /8:35 PM /9:26 AM
--- NOTE | 2017-09-20 12:06 | HHI.OB ---
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, topimax, gabapentin complaining of scratching due to itching thinks may be percocet Objective Vitals/I&O Vital Signs Date Time Temp Pulse Resp B/P (MAP) Pulse Ox O2 Delivery O2 Flow Rate FiO2 09/20/17 11:31 101 20 143/88 (106) 09/20/17 08:45 97.6 96 18 142/92 (109) 09/20/17 07:45 18 09/20/17 04:15 96.9 93 18 09/20/17 04:15 127/81 (96) 09/20/17 00:50 130/81 (97) 09/20/17 00:50 96.6 90 20 96 09/19/17 19:55 98.0 97 20 130/83 (99) 09/19/17 18:29 98.2 103 17 141/90 (107) 99 09/19/17 18:28 98.2 103 17 141/90 (107) 99 09/19/17 17:00 19 09/19/17 16:31 112 137/90 (106) 09/19/17 16:30 18 09/19/17 16:00 112 128/63 (84) 09/19/17 15:30 111 144/85 (104) 09/19/17 15:00 104 137/90 (106) 09/19/17 14:54 17 09/19/17 14:30 108 150/86 (107) 09/19/17 14:14 98.2 09/19/17 14:10 18 09/19/17 14:00 105 153/95 (114) 09/19/17 13:45 17 09/19/17 13:42 100 149/94 (112) 09/19/17 13:30 103 140/101 (114) 09/19/17 13:15 17 09/19/17 13:00 100 146/94 (111) 09/19/17 12:45 18 09/19/17 12:40 18 09/19/17 12:39 106 149/92 (111) 09/19/17 12:25 17 09/19/17 12:07 99 150/90 (110) Result Diagram: 09/20/17 0822 09/18/17 1545 Objective Remarks GENERAL: Well-nourished, well-developed patient. CARDIOVASCULAR: Regular rate and rhythm without murmurs, gallops, or rubs. RESPIRATORY: Breath sounds equal bilaterally. No accessory muscle use. ABDOMEN/GI: Abdomen soft, non-tender, bowel sounds present. Incision: Clean, dry and intact. Fundus: Firm, non-tender at umbilicus. GENITOURINARY: Light to moderate bleeding. EXTREMITIES: No cyanosis or edema, non-tender, without signs of DVT. normal reflexes Medications and IVs Current Medications Medications (Trade) Dose Ordered Sig/Ian Route Start Time Stop Time Status Last Admin (Calcium Gluconate Inj) 1 gm UNSCH PRN IV PUSH 09/17/17 13:15 10/17/17 13:14 (Tylenol) 650 mg Q4H PRN PO 09/17/17 13:15 09/18/17 13:57 (Stuartnatal Plus 3 ) 1 tab DAILY PO 09/18/17 09:00 09/20/17 08:49 (Tucks Pads) 1 applic UNSCH PRN TOPICAL 09/17/17 17:00 09/17/17 18:17 (Pepcid) 20 mg Q12HR PO 09/17/17 21:00 09/20/17 08:49 (Buspar) 10 mg Q8HR PO 09/17/17 17:30 09/18/17 05:38 (Tucks Pads) 1 applic UNSCH PRN TOPICAL 09/17/17 17:30 (Vistaril) 50 mg Q8H PRN PO 09/18/17 18:00 09/18/17 21:13 (Bicitra Liq) 30 ml GRANITE FABRICATOR PO 09/18/17 19:00 09/22/17 18:59 09/19/17 08:40 Oxytocin 500 ml @ 100 mls/hr UNSCH X1 PRN IV 09/19/17 19:00 09/20/17 18:59 (NS Flush) 2 ml BID IV FLUSH 09/19/17 09:00 (NS Flush) 2 ml UNSCH PRN IV FLUSH 09/19/17 09:00 (Mylicon Chew) 80 mg QID PRN PO 09/19/17 09:00 (Motrin) 600 mg Q6H PRN PO 09/19/17 09:00 09/20/17 08:51 (Percocet 5-325 Mg) 1 tab Q4H PRN PO 09/19/17 09:00 (Percocet 5-325 Mg) 2 tab Q4H PRN PO 09/19/17 09:00 09/19/17 21:11 (Lala-Colace) 2 tab Q12H PRN PO 09/19/17 09:00 (Ambien) 5 mg HS PRN PO 09/19/17 09:00 (M-M-R Ii Inj) 0.5 ml ONCE ONCE SQ 09/20/17 16:00 09/20/17 16:01 (Boostrix Inj) 0.5 ml ONCE ONCE IM 09/20/17 16:00 09/20/17 16:01 (Zofran Inj) 4 mg Q6H PRN IV PUSH 09/19/17 09:00 (Trandate) 100 mg Q12HR PO 09/19/17 09:00 09/20/17 08:51 Miscellaneous Information NO SYSTEMIC NARCOTICS TO BE GIVEN FO... UNSCH PRN .XX 09/19/17 13:00 09/20/17 12:59 (Narcan Inj) 0.4 mg UNSCH PRN IV PUSH 09/19/17 13:00 09/20/17 12:59 (Benadryl Inj) 25 mg Q6H PRN IV PUSH 09/19/17 13:00 09/20/17 12:59 (Benadryl) 50 mg Q6H PRN PO 09/19/17 13:00 09/20/17 12:59 Miscellaneous Information ALL NURSING DEPARTMENTS UNSCH PRN .XX 09/19/17 13:00 09/20/17 12:59 Assessment/Plan Assessment and Plan Patient is 32-year-old white female at 32-1/2 weeks with twins and -induced hypertension. Patient has no history of hypertension prior to this been running high for the last several weeks. The pressure here 153/94 144/99 She was in hospital for about a week to weeks ago and was sent home. She has visual changes is the only new future with the sparkles flashing lights in her eyes. She complains of swelling increase in lower extremities and has 2- 3+ pretibial edema now. Urine dipstick here on OB ED today shows high amount of protein in the urine as well as blood. NST is reactive for both babies and no contractions. Patient sees Dr. Brice for care and she is scheduled for a section in October- Twin at 32-33 weeks with the -induced hypertension/preeclampsia Plan- admit to the hospital collect 24-hour urine protein, check PIH blood lab, maintain bedrest as much as possible 09/17/17 19;30 calm in bed with no complaints 169/98 on first BP Repeated with manual cuff started on labatelol po BID POD 1 09/20/17 [place] and headache with minimally elevated BPs on labetolo at risk for alli and may be exacerbated by insomnia mildly anemic seroquel possible luvox tomorrow change to Lu Castro MD Sep 20, 2017 12:06
[2017-09-20] MEDS ORDERED: ACETAMINOPHEN/HYDROcodone 325 MG/5 MG TAB PO PRN (12:15)
[2017-09-20] MEDS: ACETAMINOPHEN/HYDROcodone 325 MG/5 MG TAB PO PRN (15:25)
[2017-09-20] MEDS ORDERED: DIPHTH/TETANUS/ACEL PERTUSSIS (BOOSTER) 0.5 ML VIAL/PFS IM ONE (16:00)
[2017-09-20] MEDS ORDERED: MEASLES, MUMPS, RUBELLA VACCINE 0.5 ML VIAL SQ ONE (16:00)
[2017-09-20] MEDS: QUEtiapine FUMARATE 200 MG TAB PO SCH (22:11)
[2017-09-21 03:15] VITALS: BP 124/79; PULSE 103; RESP 16
[2017-09-21] MEDS: busPIRone HCL 10 MG TAB PO SCH ×3 (06:00→20:45)
[2017-09-21] MEDS: IBUPROFEN 600 MG TAB PO PRN ×3 (06:37→22:19)
--- NOTE | 2017-09-21 07:44 | HHI.OB ---
Subjective Post Operative Day: 2 Remarks Just waking up. No headache still has blurred vision and diplopia had high BP last night and low since Objective Vitals/I&O Vital Signs Date Time Temp Pulse Resp B/P (MAP) Pulse Ox O2 Delivery O2 Flow Rate FiO2 09/21/17 03:15 103 16 124/79 (94) 09/20/17 22:55 16 09/20/17 22:08 105 18 155/96 (115) 09/20/17 22:08 98.5 100 09/20/17 19:45 97.9 100 09/20/17 19:45 109 18 153/97 (115) 09/20/17 12:44 139/75 (96) 09/20/17 12:44 20 09/20/17 11:31 101 20 143/88 (106) 09/20/17 08:45 97.6 96 18 142/92 (109) 09/20/17 07:45 18 Result Diagram: 09/20/17 0822 09/18/17 1545 Objective Remarks GENERAL: Well-nourished, well-developed patient. CARDIOVASCULAR: Regular rate and rhythm without murmurs, gallops, or rubs. RESPIRATORY: Breath sounds equal bilaterally. No accessory muscle use. ABDOMEN/GI: Abdomen soft, non-tender, bowel sounds present. Incision: Clean, dry and intact. Fundus: Firm, non-tender at umbilicus. GENITOURINARY: Light to moderate bleeding. EXTREMITIES: No cyanosis or edema, non-tender, without signs of DVT. normal reflexes Medications and IVs Current Medications Medications (Trade) Dose Ordered Sig/[facility] Route Start Time Stop Time Status Last Admin (Calcium Gluconate Inj) 1 gm UNSCH PRN IV PUSH 09/17/17 13:15 10/17/17 13:14 (Tylenol) 650 mg Q4H PRN PO 09/17/17 13:15 09/18/17 13:57 (Stuartnatal Plus 3 ) 1 tab DAILY PO 09/18/17 09:00 09/20/17 08:49 (Tucks Pads) 1 applic UNSCH PRN TOPICAL 09/17/17 17:00 09/17/17 18:17 (Pepcid) 20 mg Q12HR PO 09/17/17 21:00 09/20/17 22:10 (Buspar) 10 mg Q8HR PO 09/17/17 17:30 09/20/17 22:12 (Tucks Pads) 1 applic UNSCH PRN TOPICAL 09/17/17 17:30 (Vistaril) 50 mg Q8H PRN PO 09/18/17 18:00 09/18/17 21:13 (Bicitra Liq) 30 ml C[employer] STOR[employer]ER PO 09/18/17 19:00 09/22/17 18:59 09/19/17 08:40 (NS Flush) 2 ml BID IV FLUSH 09/19/17 09:00 (NS Flush) 2 ml UNSCH PRN IV FLUSH 09/19/17 09:00 (Mylicon Chew) 80 mg QID PRN PO 09/19/17 09:00 (Motrin) 600 mg Q6H PRN PO 09/19/17 09:00 09/21/17 06:37 (Lala-Colace) 2 tab Q12H PRN PO 09/19/17 09:00 09/20/17 15:25 (Ambien) 5 mg HS PRN PO 09/19/17 09:00 (Zofran Inj) 4 mg Q6H PRN IV PUSH 09/19/17 09:00 (Trandate) 100 mg Q12HR PO 09/19/17 09:00 09/20/17 22:10 (Cardale 5-325 Mg) 1 tab Q4H PRN PO 09/20/17 12:15 (Cardale 5-325 Mg) 2 tab Q4H PRN PO 09/20/17 12:15 09/20/17 15:25 (SEROquel) 200 mg HS PO 09/20/17 21:00 09/20/17 22:11 Assessment/Plan Assessment and Plan Patient is 32-year-old white female at 32-1/2 weeks with twins and -induced hypertension. Patient has no history of hypertension prior to this been running high for the last several weeks. The pressure here 153/94 144/99 She was in hospital for about a week to weeks ago and was sent home. She has visual changes is the only new future with the sparkles flashing lights in her eyes. She complains of swelling increase in lower extremities and has 2- 3+ pretibial edema now. Urine dipstick here on OB ED today shows high amount of protein in the urine as well as blood. NST is reactive for both babies and no contractions. Patient sees Dr. Brice for care and she is scheduled for a section in October- Twin at 32-33 weeks with the -induced hypertension/preeclampsia Plan- admit to the hospital collect 24-hour urine protein, check PIH blood lab, maintain bedrest as much as possible 09/17/17 19;30 calm in bed with no complaints 169/98 on first BP Repeated with manual cuff started on labatelol po BID POD 1 09/20/17 [place] and headache with minimally elevated BPs on labetolo at risk for alli and may be exacerbated by insomnia mildly anemic seroquel possible luvox tomorrow change to norco POD 2 09/21/17 0730 seroquel helping with sleep and hopefully eventually alli pain controlled with norco BP fairly stable. No change in meds Watch additional 24 hours both daughters doing well in NICU Babs,Lu Howard MD Sep 21, 2017 07:44
[2017-09-21] MEDS ORDERED: IBUP-232 PO (07:46)
[2017-09-21] MEDS ORDERED: QUET1TAB9 PO (07:46)
[2017-09-21] MEDS ORDERED: HYDR-3516 PO (07:46)
[2017-09-21] MEDS ORDERED: LABE100T2 PO (07:46)
--- NOTE | 2017-09-21 07:47 | HHI.DCPOC ---
Discharge Care Plan Report Symptoms to Your Doctor -Temperature above 100.5 degrees -Redness, of incision or excessive or foul smelling drainage -Unusual pain or calf pain -Increased vaginal bleeding -Painful or difficulty urinating -Feelings of extreme sadness or anxiety after 2 weeks Goals to Promote Your Health * To prevent worsening of your condition and complications * To maintain your health at the optimal level Directions to Meet Your Goals Take your medications as prescribed Follow your dietary instruction Follow activity as directed Ensure plenty of rest for recovery Drink fluids for hydration Keep your appointments as scheduled Take your immunizations and boosters as scheduled If your symptoms worsen call your PCP, if no PCP go to Urgent Care Center or Emergency Room Smoking is Dangerous to Your Health. Avoid second hand smoke Call the 24-hour crisis hotline for domestic abuse at Lu Brice MD Sep 21, 2017 07:46
[2017-09-21 08:00] VITALS: BP 134/89; PULSE 94; RESP 15; TEMP 97.9; O2SAT 96
[2017-09-21] MEDS: MULTIVIT/MIN/PREN/FOL AC/IRON PRENATAL TAB PO SCH (09:16)
[2017-09-21] MEDS: LABETALOL HCL 100 MG TAB PO SCH (09:16)
[2017-09-21] MEDS: FAMOTIDINE 20 MG TAB PO SCH ×2 (09:16→20:44)
[2017-09-21] MEDS: ACETAMINOPHEN/HYDROcodone 325 MG/5 MG TAB PO PRN ×2 (10:35→15:41)
[2017-09-21 11:13] VITALS: BP 124/78; PULSE 103
[2017-09-21 16:11] VITALS: BP 142/91
[2017-09-21 19:45] VITALS: BP 148/92; PULSE 107; RESP 20; TEMP 99.8
[2017-09-21] MEDS: QUEtiapine FUMARATE 200 MG TAB PO SCH (20:44)
[2017-09-21] MEDS: LABETALOL HCL 200 MG TAB PO SCH (20:44)
[2017-09-21 21:45] VITALS: BP 116/77; PULSE 99; RESP 20; TEMP 98.8
[2017-09-22 05:13] VITALS: BP 121/77; PULSE 106; RESP 20; TEMP 98.7
[2017-09-22] MEDS: busPIRone HCL 10 MG TAB PO SCH ×2 (05:54→14:51)
[2017-09-22] MEDS: ACETAMINOPHEN/HYDROcodone 325 MG/5 MG TAB PO PRN ×2 (05:57→11:36)
[2017-09-22] MEDS: IBUPROFEN 600 MG TAB PO PRN ×2 (05:58→11:35)
[2017-09-22 08:00] VITALS: BP 143/79; PULSE 98; RESP 18; TEMP 97.9; O2SAT 99
[2017-09-22] MEDS: FAMOTIDINE 20 MG TAB PO SCH (09:22)
[2017-09-22] MEDS: LABETALOL HCL 200 MG TAB PO SCH (09:22)
[2017-09-22] MEDS: MULTIVIT/MIN/PREN/FOL AC/IRON PRENATAL TAB PO SCH (09:22)
--- NOTE | 2017-09-22 10:16 | HHI.OB ---
Subjective Post Operative Day: 3 Remarks Doing well less pressured speech and manic feelings has a stay close available pain managable Objective Vitals/I&O Vital Signs Date Time Temp Pulse Resp B/P (MAP) Pulse Ox O2 Delivery O2 Flow Rate FiO2 09/22/17 05:13 98.7 09/22/17 05:13 106 20 121/77 (92) 09/21/17 21:45 99 116/77 (90) 09/21/17 21:45 98.8 20 09/21/17 19:45 99.8 107 20 148/92 (110) 09/21/17 16:11 142/91 (108) 09/21/17 11:13 103 124/78 (93) Result Diagram: 09/20/17 0822 09/18/17 1545 Objective Remarks GENERAL: Well-nourished, well-developed patient. CARDIOVASCULAR: Regular rate and rhythm without murmurs, gallops, or rubs. RESPIRATORY: Breath sounds equal bilaterally. No accessory muscle use. ABDOMEN/GI: Abdomen soft, non-tender, bowel sounds present. Incision: Clean, dry and intact. Fundus: Firm, non-tender at umbilicus. GENITOURINARY: Light to moderate bleeding. EXTREMITIES: No cyanosis minimal edema, non-tender, without signs of DVT. normal reflexes Medications and IVs Current Medications Medications (Trade) Dose Ordered Sig/Ian Route Start Time Stop Time Status Last Admin (Calcium Gluconate Inj) 1 gm UNSCH PRN IV PUSH 09/17/17 13:15 10/17/17 13:14 (Tylenol) 650 mg Q4H PRN PO 09/17/17 13:15 09/18/17 13:57 (Stuartnatal Plus 3 ) 1 tab DAILY PO 09/18/17 09:00 09/22/17 09:22 (Tucks Pads) 1 applic UNSCH PRN TOPICAL 09/17/17 17:00 09/17/17 18:17 (Pepcid) 20 mg Q12HR PO 09/17/17 21:00 09/22/17 09:22 (Buspar) 10 mg Q8HR PO 09/17/17 17:30 09/22/17 05:54 (Tucks Pads) 1 applic UNSCH PRN TOPICAL 09/17/17 17:30 (Vistaril) 50 mg Q8H PRN PO 09/18/17 18:00 09/18/17 21:13 (Bicitra Liq) 30 ml TRIP FOLLOWER PO 09/18/17 19:00 09/22/17 18:59 09/19/17 08:40 (NS Flush) 2 ml BID IV FLUSH 09/19/17 09:00 (NS Flush) 2 ml UNSCH PRN IV FLUSH 09/19/17 09:00 (Mylicon Chew) 80 mg QID PRN PO 09/19/17 09:00 (Motrin) 600 mg Q6H PRN PO 09/19/17 09:00 09/22/17 05:58 (Lala-Colace) 2 tab Q12H PRN PO 09/19/17 09:00 09/20/17 15:25 (Ambien) 5 mg HS PRN PO 09/19/17 09:00 (Zofran Inj) 4 mg Q6H PRN IV PUSH 09/19/17 09:00 (Brooks 5-325 Mg) 1 tab Q4H PRN PO 09/20/17 12:15 (Brooks 5-325 Mg) 2 tab Q4H PRN PO 09/20/17 12:15 09/22/17 05:57 (SEROquel) 200 mg HS PO 09/20/17 21:00 09/21/17 20:44 (Trandate) 200 mg Q12HR PO 09/21/17 21:00 09/22/17 09:22 Assessment/Plan Assessment and Plan Patient is 32-year-old white female at 32-1/2 weeks with twins and -induced hypertension. Patient has no history of hypertension prior to this been running high for the last several weeks. The pressure here 153/94 144/99 She was in hospital for about a week to weeks ago and was sent home. She has visual changes is the only new future with the sparkles flashing lights in her eyes. She complains of swelling increase in lower extremities and has 2- 3+ pretibial edema now. Urine dipstick here on OB ED today shows high amount of protein in the urine as well as blood. NST is reactive for both babies and no contractions. Patient sees Dr. Brice for care and she is scheduled for a section in October- Twin at 32-33 weeks with the -induced hypertension/preeclampsia Plan- admit to the hospital collect 24-hour urine protein, check PIH blood lab, maintain bedrest as much as possible 09/17/17 19;30 calm in bed with no complaints 169/98 on first BP Repeated with manual cuff started on labatelol po BID POD 1 09/20/17 [place] and headache with minimally elevated BPs on labetolo at risk for alli and may be exacerbated by insomnia mildly anemic seroquel possible luvox tomorrow change to norco POD 2 09/21/17 0730 seroquel helping with sleep and hopefully eventually alli pain controlled with norco BP fairly stable. No change in meds Watch additional 24 hours both daughters doing well in NICU POD 2 09/22/17 Doing well on seroquel home on short course norco RTO 2 weeks Lu Brice MD Sep 22, 2017 10:16
[2017-09-22] MEDS ORDERED: BUSP10TA PO (10:20)
[2017-09-22] MEDS ORDERED: HYDR50CA PO (10:20)
[2017-09-22] MEDS ORDERED: LABE200T2 PO (10:20)
[2017-09-22 12:09] VITALS: BP 135/78; PULSE 101; RESP 18; TEMP 97.6; O2SAT 100
== END 2017-09-22 15:03 | disposition home or self-care (01) | DRG 765 ==
LOC: HOBED 12:10 → H2EA 13:34 → H1EA 09-19 17:52
PROVIDERS: ADMIT Obstetrics & Gynecology; ATTEND Obstetrics & Gynecology
PROC: 10D00Z1 Extraction of Products of Conception, Low, Open Approach (ICD-10-PCS; principal; 2017-09-19)
DX: O14.14 Severe pre-eclampsia complicating childbirth (principal); Z68.41 Body mass index [BMI] 40.0-44.9, adult; O26.833 Pregnancy related renal disease, third trimester; N04.9 Nephrotic syndrome with unspecified morphologic changes; O30.043 Twin pregnancy, dichorionic/diamniotic, third trimester; Z37.2 Twins, both liveborn; O99.213 Obesity complicating pregnancy, third trimester; E66.9 Obesity, unspecified; O32.1XX0 Maternal care for breech presentation, not applicable or unspecified; O99.343 Other mental disorders complicating pregnancy, third trimester; F31.9 Bipolar disorder, unspecified; Z3A.32 32 weeks gestation of pregnancy
CPT/HCPCS: 59025; 76819; 76820; 80053; 80076; 81001; 82570; 82805; 83030; 84157; 84550; 85007; 85025; 85027; 85461; 86850; 86900; 86901; 87081; 87086; 88307; 90384; 90707; 90715; J0690; J0702; J1100; J2274; J2405; J2590; J2790; J7120

== ENCOUNTER 2017-10-02 18:18 | Emergency (ER) | payer OTHER ==
[~2017-10-02 18:18] MED LIST changes: +BUSP10TA PO; +HYDR-3516 PO; +HYDR50CA PO; +IBUP-232 PO; +LABE100T2 PO; +LABE200T2 PO; +QUET1TAB9 PO
[2017-10-02 18:22] VITALS: BP 164/78; PULSE 82; RESP 18; TEMP 98.2; O2SAT 100
[2017-10-02 20:10] LABS: HEMATOCRIT 32.3 % (35.0-46.0); HEMOGLOBIN 10.7 GM/DL (11.6-15.3); MEAN CELL VOLUME 88.1 FL (80.0-100.0); MEAN CORPUSCULAR HEMOGLOBIN 29.2 PG (27.0-34.0); MEAN CORPUSCULAR HGB CONC 33.1 % (32.0-36.0); MEAN PLATELET VOLUME 7.5 FL (7.0-11.0); PLATELET COUNT 292 TH/MM3 (150-450); RED BLOOD COUNT 3.67 MIL/MM3 (4.00-5.30); WHITE BLOOD COUNT 9.6 TH/MM3 (4.0-11.0)
[2017-10-02] MEDS ORDERED: CEPH-460 PO (20:19)
--- NOTE | 2017-10-02 20:20 | PD ---
HPI Chief Complaint This patient is 2 weeks out from a section done for severe preeclampsia and twin gestation, she has noticed some drainage from her wound and increased pain in her wound and came to the emergency room where they checked a blood pressure and found it to be high 160/90, the patient takes labetalol 200 twice daily and is a known history of high blood pressure prior to Date Seen: Oct 02, 2017 Time Seen: 18:25 Travel History International Travel<30 Days: No Contact w/Intl Traveler<30Days: No Known Affected Area: No History of Present Illness HPI Patient is 32-year-old white female previous done by the [facility] for chronic hypertension superimposed severe preeclampsia, massive proteinuria, twin gestation . Patient today came to the emergency room today because of her incision was draining some on the right side and was hurting there. They noticed her blood pressure 160/90-100 range and sent her up to OB ED Para: 2 : 2 History Past Medical History Narrative Medical Chronic hypertension nephrotic syndrome Obstetric History Obstetric History section for severe preeclampsia superimposed on hypertension Past Surgical History Narrative Surgical Social History Alcohol Use: No Tobacco Use: No Substance Abuse: No Allergies-Medications (Allergen,Severity, Reaction): Coded Allergies: sertraline (Verified Allergy, Severe, Swelling, 09/08/17) TONGUE SWELLING *ANGIOEDEMA* Home Meds Active Scripts Labetalol (Labetalol) 200 Mg Tab, 200 MG PO Q12HR for hypertension, #4 TAB Prov:Lu Brice MD 09/22/17 Hydroxyzine Pamoate (Hydroxyzine Pamoate) 50 Mg Cap, 50 MG PO Q8H Y for insomnia / anxiety, #20 CAP Prov:Lu Brice MD 09/22/17 Buspirone (Buspirone) 10 Mg Tab, 10 MG PO Q8HR for Anxiety and/or Insomnia for 30 Days, #60 TAB Prov:Lu Brice MD 09/22/17 Labetalol (Labetalol) 100 Mg Tab, 100 MG PO Q12HR for post hypertension, #60 TAB Prov:Lu Brice MD 09/21/17 Quetiapine (Quetiapine) 200 Mg Tab, 200 MG PO HS for bipolar disorder, #30 TAB Prov:Carbiener,Lu Perkins MD 09/21/17 Ibuprofen (Ibuprofen) 600 Mg Tab, 600 MG PO Q6H Y for CRAMPING, #20 TAB Prov:Lu Brice MD 09/21/17 Hydrocodone/Acetaminophen (Hydrocodone-Acetamin 5-325 mg) 5 Mg-325 Mg Tablet, 2 TAB PO Q4H Y for pain 6-10, #30 TAB Prov:Lu Brice MD 09/21/17 Reported Medications Buspirone (Buspirone) 10 Mg Tab, 10 MG PO TID for Anxiety, TAB 0 Refills 09/17/17 Ranitidine (Zantac) 150 Mg Tab, 150 MG PO BID for Reduce Stomach Acid, #60 TAB 0 Refills 09/08/17 Vit W/ Docusate-Fe Fu (Se-Lorraine 19 29-1 mg) 29 Mg Iron-1 Mg-25 Mg Tab, 1 TAB PO DAILY for Nutritional Supplement, TAB 0 Refills 05/24/17 Review of Systems General / Constitutional: No: Fever, Weight Gain, Chills, Other Eyes: No: Diploplia, Blurred Vision, Visual changes, Pain, Photophobia HENT: No: Headaches, Vertigo, Lightheadedness Cardiovascular: No: Irregular Rhythm, Chest Pain or Discomfort, Palpitations, Tachycardia, Syncope, Varicosities, Edema, Cyanosis Respiratory: No: Cough, Short of Breath, Other Gastrointestinal: No: Nausea, Vomiting, Diarrhea Genitourinary: No: Decreased Urinary Output, Oliguria Musculoskeletal: No: Limited ROM, Weakness, Cramping, Edema, Pain Skin: No Rash, No Itching, No Dryness, No Lumps, No Change in Pigmentation, No Change in Nails, No Alopecia, No Lesions Neurologic: No: Weakness, Dizziness, Syncope, Focal Abnormalities, Coordination Problem, Headache, Slurred Speech, Seizures Psychiatric: No: Depression, Suicidal Ideations, Homicidal Ideation Endocrine: No: Heat Intolerance, Cold Intolerance, Polydipsia, Polyuria, Other Physical Exam Vital Signs Date Time Temp Pulse Resp B/P (MAP) Pulse Ox O2 Delivery O2 Flow Rate FiO2 10/02/17 18:22 98.2 82 18 164/78 (106) 100 Narrative GENERAL: Well-nourished, well-developed patient. SKIN: Warm and dry. HEAD: Normocephalic and atraumatic. EYES: No scleral icterus. No injection or drainage. ENT: No nasal drainage noted. Mucous membranes pink. Airway patent. NECK: Supple, trachea midline. No JVD. CARDIOVASCULAR: Regular rate and rhythm without murmurs, gallops, or rubs. RESPIRATORY: Breath sounds equal bilaterally. No accessory muscle use. BREASTS: Bilateral exam showed no masses , no retractions, no nipple discharge. ABDOMEN/GI: Abdomen soft, non-tender, bowel sounds present, no rebound, no guarding, her incision looks good there is very minimal swelling and redness around the right side the incision is intact squeezed on that area put a lot of pressure there. Got no drainage out, there is a small area that looks like was the place where a drain was postop and I think that may have been where she saw the drainage come from. EXTREMITIES: No cyanosis or edema. BACK: Nontender without obvious deformity. No CVA tenderness. NEUROLOGICAL: Awake and alert. Motor and sensory grossly within normal limits. Five out of 5 muscle strength in all muscle groups. Normal speech. Data Data Orders Orders Cbc No Diff, Includes Plts (10/02/17 19:16) Comprehensive Metabolic Panel (10/02/17 19:16) Uric Acid (10/02/17 19:16) Labs Laboratory Tests [facility] lab done today-- Test 10/02/17 19:40 [facility] Interpretation(s) Patient is 32-year-old white female is two-week status post for severe preeclampsia superimposed nephrotic syndrome, twin gestation now in the hospital initially for check of her incision which she felt was draining liquid and hurting she was seen in the main ER downstairs for her incision and I checked her blood pressure and noted that it was 160/90 -100 and they sent her here Plan Plan to check the patient's PIH lab serial blood pressures are on obedient all been acceptable for her in the 140/90 at the highest range, and she is to continue her labetalol as she knows to do and with PIH lab being normal will be able to discharge home for her to follow up with her Dr. Brice for incision check, but placed the patient on p.o. Keflex just cover the incisions potential infection development. Diagnosis Diagnosis: Primary Impression: Hypertension Additional Impression: Post-op pain Disposition: 01 DISCHARGE HOME Condition: Stable Scripts Cephalexin (Keflex) 500 Mg Cap 500 MG PO Q8H for Infection for 7 Days, #21 CAP 0 Refills Prov: Dennis Wolfe II, MD 10/02/17 Patient Instructions: General Instructions Departure Forms: Tests/Procedures Dennis Wolfe II, MD Oct 02, 2017 20:20
[2017-10-02 20:26] LABS: ALT (GPT) 34 U/L (10-53); AST (GOT) 22 U/L (15-37); BLOOD UREA NITROGEN 12 MG/DL (7-18); CALCIUM 9.2 MG/DL (8.5-10.1); CHLORIDE 104 MEQ/L (98-107); GLOMERULAR FILTRATION RATE 98 ML/MIN (>89); GLUCOSE,RANDOM 87 MG/DL (74-106); SODIUM (NA) 140 MEQ/L (136-145)
[2017-10-02 20:29] LABS: ALKALINE PHOSPHATASE 143 U/L (45-117); TOTAL BILIRUBIN ADULT 0.3 MG/DL (0.2-1.0); TOTAL PROTEIN 7.4 GM/DL (6.4-8.2)
== END 2017-10-02 20:55 | disposition home or self-care (01) ==
LOC: HOBED 18:18
DX: O90.89 Other complications of the puerperium, not elsewhere classified (principal); O16.5 Unspecified maternal hypertension, complicating the puerperium; G89.18 Other acute postprocedural pain; N04.9 Nephrotic syndrome with unspecified morphologic changes; Z88.8 Allergy status to other drugs, medicaments and biological substances; Z79.899 Other long term (current) drug therapy
CPT/HCPCS: 80053; 84550; 85027; 99283